=== PATIENT | male | born 1950 | race Caucasian/White ===

== ENCOUNTER → 2018-08-11 12:57 | Outpatient (CLI) | payer OTHER, SELFPAY ==
[2018-08-11 13:52] LABS: Hemoglobin A1C% w Est Avg Glu 7.5 % (4.0-6.0)
== END ==
PROVIDERS: Family Provider Family Medicine; PCP Family Medicine; Visit Provider Hospitalist
DX: E11.65 Type 2 diabetes mellitus with hyperglycemia (principal)
CPT/HCPCS: 36415; 83036

== ENCOUNTER → 2018-08-17 13:36 | Outpatient (CLI) | payer OTHER, MEDICARE, SELFPAY ==
--- NOTE | 2018-08-17 14:48 | P.PCN_ITS ---
Cardiac Stress Test Report Referral & Results Date Patient Seen: 08/17/18 Requesting provider: Juanita Sandoval Indication: Chest pain Rest ECG: Unremarkable Procedure Note: Today following both written and verbal informed consent the patient was exercised according to a standard Jorge protocol patient went for a total of 6 minutes 10 seconds achieving a maximum heart rate of 127 maximum systolic blood pressure of 200. This is approximately 7.0 METS. Exercise was terminated at this point because of fatigue. Patient was also given Cardiolite through a previously started Hep-Lock IV by the transportation engineering technician approximately 1 minute prior to the cessation of exercise. No ST-T segment changes Normal heart rate blood pressure response Functional week impairment rated 15% sedentary scale Impression: No ECG evidence of ischemia Average exercise capacity to slightly diminished Please see perfusion imaging report as well Please note: Actual ECG tracings can be found in the PACS system.
--- NOTE | 2018-08-18 17:55 | DI.NM.S_ITS ---
DATE OF SERVICE: 08/17/2017 PROCEDURE PERFORMED: Exercise treadmill stress and rest myocardial perfusion imaging study with gating to assess ejection fraction and regional wall motion. ORDERING PROVIDER: Juanita Sandoval DO INDICATIONS: The patient is a 67-year-old diabetic male recently evaluated in the emergency department with left arm pain and severe hypertension. EXERCISE TREADMILL TESTING: The patient was able to exercise for a total of 6 minutes 10 seconds on a standard Jorge protocol suggesting moderately impaired exercise capacity with an LASHAWN of +25%. He had a mildly blunted heart rate response, achieving a maximum heart rate of 127 bpm (82% of his predicted maximum) and a mild hypertensive blood pressure response with a resting blood pressure of 160/88 increasing to a peak of 200/90. He had no chest discomfort and his resting ECG shows sinus rhythm and is normal, and there are no significant ST-segment shifts to suggest ischemia. There were no arrhythmias. At 5 minutes 17 seconds of exercise, at heart rate of 126 bpm, 24.7 mCi of technetium-99 Myoview was injected and the patient was imaged 15 minutes later using a gated SPECT acquisition protocol. He returned the following day and was reinjected with an additional 27.4 mCi of technetium-99 Myoview and was imaged 30 minutes later, again using a gated SPECT acquisition protocol. FINDINGS: 1. Raw Data: There is fair myocardial tracer uptake with some attenuation clearly evident. There is also a mild amount of motion which can also introduce artifact The lung/heart ratio is normal at 0.36 with a normal TID ratio of 0.73. 2. Quantitative Gated SPECT: Post stress ejection fraction is estimated at 71% without any regional wall motion abnormality and specifically, the proximal inferolateral wall and apex have normal contractility. The resting ejection fraction is estimated at 69% with a normal resting end-diastolic volume of 110 mL. 3. Myocardial Perfusion Imaging: Post stress supine images show a fairly normal perfusion pattern with mildly decreased tracer activity at the base of the inferior wall with a more severe defect at the base of the inferolateral wall but this essentially resolves on prone imaging suggesting this most likely reflects attenuation artifact. In addition, there is a very small subtle defect at the apex which again, resolves on prone imaging. The resting images show a similar perfusion pattern. While there is very slight improvement at the base of the inferolateral wall, this again is most likely secondary to attenuation artifact. The apical defect appears unchanged. CONCLUSIONS: 1. Probable normal myocardial perfusion study with slightly reduced sensitivity because of a mildly blunted heart rate response to exercise. 2. Small, predominantly fixed, slightly reversible perfusion defect at the base of the inferolateral wall that resolves on prone imaging, most likely reflective of diaphragmatic attenuation artifact. There is also a small fixed defect at the apex which most likely reflects chest wall attenuation. There is no compelling evidence for significant myocardial ischemia. 3. Normal left ventricular systolic function without focal wall motion abnormalities. 4. Moderately impaired exercise capacity without angina or ECG evidence of ischemia. There is a slightly blunted heart rate response to exercise and a mild hypertensive blood pressure response to exercise. Yannick Tran - RINA/grant/ab doc#: [id number]/job#: [id number] dd: 08/18/2018 16:58:00 dt: 08/18/2018 17:42:00 DICTATING MD/COPIES TO: Jesus Schmitt MD; Juanita Sandoval DO COPIES MNE: RADHA HALLMAN
== END ==
PROVIDERS: PCP Family Medicine; Visit Provider Family Medicine
DX: R07.9 Chest pain, unspecified (principal); M79.602 Pain in left arm; I10 Essential (primary) hypertension; E11.9 Type 2 diabetes mellitus without complications
CPT/HCPCS: 78452; 93016; 93017; 93018; A9502

== ENCOUNTER → 2020-04-27 14:57 | Outpatient (CLI) | payer OTHER, MEDICARE, SELFPAY ==
[2020-04-27 15:23] LABS: Add Manual Diff / Slide Review NO; Basophils Absolute Auto 0 /uL (0-100); Basophils Percent Auto 0.9 % (0-2); Eosinophils Absolute Auto 100 /uL (0-450); Hematocrit 43.4 % (41-53); Hemoglobin 14.9 g/dL (13.5-17.5); Lymphocytes Absolute Auto 600 /uL (1100-4500); Lymphocytes Percent Auto 14.3 % (25-40); Mean Corpuscular HGB Conc 34.4 % (30-36); Mean Corpuscular Hemoglobin 29.7 PG (26-34); Mean Corpuscular Volume 86.4 fL (80-100); Monocytes Absolute Auto 300 /uL (0-900); Monocytes Percent Auto 6.6 % (3-14); Neutrophils Absolute Auto 3300 /uL (1500-7000); Neutrophils Percent Auto 76.2 % (50-75); Platelet Count 87 X10^3/uL (150-400); Red Blood Cell Count 5.02 X10^6/uL (4.5-5.9); Red Cell Distribution Width 13.2 % (11.6-14.8); White Blood Cell Count 4.4 X10^3/uL (4.5-11.0)
[2020-04-27 15:53] LABS: Hemoglobin A1C% w Est Avg Glu 7.2 % (4.0-6.0)
[2020-04-27 15:55] LABS: Alanine Aminotransferase 23 IU/L (<50); Albumin 4.2 g/dL (3.5-5.0); Albumin Globulin Ratio 1.3 (1.0-2.8); Alkaline Phosphatase 69 U/L (38-126); Aspartate Aminotransferase 25 IU/L (17-59); BUN Creatinine Ratio 26.5 (6-22); Bilirubin Total 0.6 mg/dL (0.2-1.3); Blood Urea Nitrogen 31 mg/dL (9-20); Calcium 9.5 mg/dL (8.4-10.2); Carbon Dioxide 30 mmol/L (22-32); Chloride 101 mmol/L (98-107); Estimated Glomerular Filt Rate > 60.0 mL/min (>60); Globulin 3.3 g/dL (1.7-4.1); Glucose 211 mg/dL (80-110); HEMOLYSIS < 15 (0-50); Potassium 4.4 mmol/L (3.4-5.1); Sodium 136 mmol/L (137-145); Total Protein 7.5 g/dL (6.3-8.2)
== END ==
PROVIDERS: PCP Family Medicine; Referring Provider Family Medicine; Visit Provider Family Medicine
DX: D69.6 Thrombocytopenia, unspecified (principal); E11.65 Type 2 diabetes mellitus with hyperglycemia; E66.9 Obesity, unspecified; I10 Essential (primary) hypertension; N30.11 Interstitial cystitis (chronic) with hematuria
CPT/HCPCS: 36415; 80053; 83036; 85025

== ENCOUNTER → 2022-03-29 12:08 | Outpatient (CLI) | payer OTHER, MEDICARE, SELFPAY ==
[2022-03-29 13:38] LABS: Add Manual Diff / Slide Review NO; Basophils Absolute Auto 100 /uL (0-100); Basophils Percent Auto 1.4 % (0-2); Eosinophils Absolute Auto 400 /uL (0-450); Eosinophils Percent Auto 5.6 % (2-4); Hematocrit 40.5 % (41-53); Hemoglobin 13.9 g/dL (13.5-17.5); Lymphocytes Absolute Auto 900 /uL (1100-4500); Lymphocytes Percent Auto 11.1 % (25-40); Mean Corpuscular HGB Conc 34.4 % (30-36); Mean Corpuscular Hemoglobin 29.8 PG (26-34); Mean Corpuscular Volume 86.7 fL (80-100); Monocytes Absolute Auto 600 /uL (0-900); Monocytes Percent Auto 7.3 % (3-14); Neutrophils Absolute Auto 5800 /uL (1500-7000); Neutrophils Percent Auto 74.6 % (50-75); Platelet Count 121 X10^3/uL (150-400); Red Blood Cell Count 4.67 X10^6/uL (4.5-5.9); White Blood Cell Count 7.8 X10^3/uL (4.5-11.0)
[2022-03-29 13:48] LABS: Hemoglobin A1C% w Est Avg Glu 7.4 % (4.0-6.0)
[2022-03-29 13:57] LABS: Alanine Aminotransferase 26 IU/L (<50); Albumin 4.1 g/dL (3.5-5.0); Albumin Globulin Ratio 1.1 (1.0-2.8); Alkaline Phosphatase 87 U/L (38-126); Aspartate Aminotransferase 25 IU/L (17-59); BUN Creatinine Ratio 25.7 (6-22); Bilirubin Total 0.5 mg/dL (0.2-1.3); Blood Urea Nitrogen 43 mg/dL (9-20); Carbon Dioxide 22 mmol/L (22-32); Chloride 105 mmol/L (98-107); Cholesterol 181 mg/dL (140-199); Estimated Glomerular Filt Rate 44 mL/min (>60); Globulin 3.8 g/dL (1.7-4.1); Glucose 222 mg/dL (80-110); HDL Cholesterol 48 mg/dL (40-60); HEMOLYSIS < 15 (0-50); LDL Cholesterol Calculated 109 mg/dL (<100); Potassium 4.8 mmol/L (3.4-5.1); Sodium 138 mmol/L (137-145); Total Protein 7.9 g/dL (6.3-8.2); Triglycerides 120 mg/dL (35-150); Uric Acid 6.1 mg/dL (3.5-8.5)
[2022-03-29 14:27] LABS: TSH w/ Reflex to FT4 3.51 uIU/mL (0.47-4.68)
[2022-04-04 10:36] LABS: Percent Free Testosterone 1.51 % (1.50-4.20); Testosterone Free 5.16 ng/dL (5.00-21.00); Testosterone Total 341.4 ng/dL (264.0-916.0)
== END ==
PROVIDERS: PCP Family Medicine; Referring Provider Family Medicine; Visit Provider Family Medicine
DX: E11.65 Type 2 diabetes mellitus with hyperglycemia (principal); I10 Essential (primary) hypertension; N30.11 Interstitial cystitis (chronic) with hematuria
CPT/HCPCS: 36415; 80053; 80061; 83036; 84402; 84403; 84443; 84550; 85025

== ENCOUNTER → 2022-05-27 14:47 | Outpatient (CLI) | payer OTHER, MEDICARE, SELFPAY ==
--- NOTE | 2022-05-27 14:50 | DI.RAD.S_ITS ---
PROCEDURE: XR CHEST 2V INDICATIONS: Eval and Treat TECHNIQUE: 2 views of the chest were acquired. COMPARISON: [facility], , CHEST 2 VIEW, 01/05/2014, 13:45. FINDINGS: Surgical changes and devices: None. Lungs and pleura: Similar scarring in the right upper lung zone. Mediastinum: Mediastinal contours are normal. Heart size is normal. Bones and chest wall: No suspicious bony abnormalities. Soft tissues appear unremarkable. IMPRESSION: Similar scarring in the right upper lung zone. Dictated by: Tobin Del Real M.D. on 05/27/2022 at 15:54 Approved by: Tobin Del Real M.D. on 05/27/2022 at 16:02
[2022-05-27 16:56] LABS: Creatinine Urine Random 133.7 mg/dL
[2022-05-28 05:27] LABS: Labcorp Hemoglobin (Hb) A1c 6.4 % (4.8-5.6)
[2022-05-28 05:32] LABS: Alanine Aminotransferase 21 IU/L (<50); Albumin 3.7 g/dL (3.5-5.0); Albumin Globulin Ratio 1.1 (1.0-2.8); Alkaline Phosphatase 88 U/L (38-126); Aspartate Aminotransferase 24 IU/L (17-59); BUN Creatinine Ratio 23.8 (6-22); Bilirubin Total 0.4 mg/dL (0.2-1.3); Blood Urea Nitrogen 41 mg/dL (9-20); Carbon Dioxide 24 mmol/L (22-32); Chloride 105 mmol/L (98-107); Estimated Glomerular Filt Rate 42 mL/min (>60); Globulin 3.3 g/dL (1.7-4.1); Glucose 154 mg/dL (80-110); HEMOLYSIS < 15 (0-50); Potassium 4.8 mmol/L (3.4-5.1); Sodium 137 mmol/L (137-145)
[2022-05-28 06:02] LABS: Prostate Specific Antigen Scrn 3.02 ng/mL (0.1-4.0)
== END ==
PROVIDERS: PCP Family Medicine; Referring Provider Family Medicine; Visit Provider Family Medicine
DX: D86.9 Sarcoidosis, unspecified (principal); E11.65 Type 2 diabetes mellitus with hyperglycemia; I10 Essential (primary) hypertension; Z12.5 Encounter for screening for malignant neoplasm of prostate
CPT/HCPCS: 36415; 71046; 80053; 82043; 82570; 83036; G0103

== ENCOUNTER → 2022-11-05 17:31 | Outpatient (CLI) | payer OTHER, MEDICARE, SELFPAY ==
[2022-11-05 18:07] LABS: Alanine Aminotransferase 21 IU/L (<50); Albumin 3.6 g/dL (3.5-5.0); Albumin Globulin Ratio 1.1 (1.0-2.8); Alkaline Phosphatase 69 U/L (38-126); Aspartate Aminotransferase 26 IU/L (17-59); BUN Creatinine Ratio 19.3 (6-22); Bilirubin Total 0.7 mg/dL (0.2-1.3); Blood Urea Nitrogen 32 mg/dL (9-20); Calcium 8.7 mg/dL (8.4-10.2); Carbon Dioxide 24 mmol/L (22-32); Chloride 106 mmol/L (98-107); Cholesterol 160 mg/dL (140-199); Estimated Glomerular Filt Rate 44 mL/min (>60); Globulin 3.4 g/dL (1.7-4.1); Glucose 105 mg/dL (80-110); HDL Cholesterol 46 mg/dL (40-60); HEMOLYSIS < 15 (0-50); LDL Cholesterol Calculated 93 mg/dL (<100); Potassium 4.4 mmol/L (3.4-5.1); Sodium 136 mmol/L (137-145); Triglycerides 105 mg/dL (35-150)
[2022-11-05 18:16] LABS: Creatinine Urine Random 129.8 mg/dL
[2022-11-05 20:00] LABS: Microalbumi Creatinin Ratio Ur 11325.1 ug/mg CR (<30)
== END ==
PROVIDERS: PCP Family Medicine; Referring Provider Family Medicine; Visit Provider Family Medicine
DX: E11.65 Type 2 diabetes mellitus with hyperglycemia (principal); I10 Essential (primary) hypertension; N40.0 Benign prostatic hyperplasia without lower urinary tract symptoms; N18.31 Chronic kidney disease, stage 3a
CPT/HCPCS: 36415; 80053; 80061; 82043; 82570; 83036

== ENCOUNTER → 2022-12-05 11:23 | Outpatient (CLI) | payer OTHER, MEDICARE, SELFPAY ==
--- NOTE | 2022-12-05 11:27 | DI.RAD.S_ITS ---
PROCEDURE: XR HUMERUS LT 2V INDICATIONS: Shoulder pain TECHNIQUE: 2 views of the humerus were acquired. COMPARISON: [facility], CR, XR SHOULDER LT MIN 2V, 12/05/2022, 11:32. [facility], CR, XR SCAPULA LT, 12/05/2022, 11:32. FINDINGS: Bones: No fractures or dislocations. No suspicious bony lesions. Soft tissues: No suspicious soft tissue calcifications. IMPRESSION: No acute osseous abnormality. Dictated by: Yoan Waters M.D. on 12/05/2022 at 16:27 Approved by: Yoan Waters M.D. on 12/05/2022 at 16:29
--- NOTE | 2022-12-05 11:27 | DI.RAD.S_ITS ---
PROCEDURE: XR SCAPULA LT INDICATIONS: Shoulder pain TECHNIQUE: 2 views of the scapula were acquired. COMPARISON: None. FINDINGS: Bones: No acute fractures or dislocations. No suspicious bony lesions. Visualized ribs appear intact. Mild to moderate degenerative changes at the acromioclavicular joint. Soft tissues: Overlying soft tissues appear normal. IMPRESSION: No acute osseous abnormality. If clinical suspicion and/or symptoms persist, additional imaging with repeat plain films, or advanced imaging (e.g. CT, MRI) may be helpful for further assessment. Approved by: Ari Helms M.D. on 12/05/2022 at 20:43
--- NOTE | 2022-12-05 11:27 | DI.RAD.S_ITS ---
PROCEDURE: XR SHOULDER LT MIN 2V INDICATIONS: Shoulder pain TECHNIQUE: 3 views of the shoulder were acquired. COMPARISON: [facility], DEBORAH, XR HUMERUS LT 2V, 12/05/2022, 11:32. [facility], DEBORAH, XR SCAPULA LT, 12/05/2022, 11:32. FINDINGS: Bones: No fractures or dislocations. Moderate degenerative change at the AC joint. No suspicious bony lesions. Visualized ribs appear intact. Soft tissues: No suspicious soft tissue calcifications. IMPRESSION: Moderate degenerative changes at the AC joint. Dictated by: Yoan Waters M.D. on 12/05/2022 at 16:29 Approved by: Yoan Waters M.D. on 12/05/2022 at 16:30
== END ==
PROVIDERS: PCP Family Medicine; Referring Provider Nurse Practitioner Family; Visit Provider Nurse Practitioner Family
DX: M25.512 Pain in left shoulder (principal)
CPT/HCPCS: 73010; 73030; 73060

== ENCOUNTER → 2023-05-16 13:03 | Outpatient (CLI) | payer OTHER, SELFPAY ==
[2023-05-16 15:08] LABS: Alanine Aminotransferase 18 IU/L (<50); Albumin 3.4 g/dL (3.5-5.0); Albumin Globulin Ratio 1.1 (1.0-2.8); Alkaline Phosphatase 77 U/L (38-126); Aspartate Aminotransferase 23 IU/L (17-59); BUN Creatinine Ratio 21.1 (6-22); Bilirubin Total 0.6 mg/dL (0.2-1.3); Blood Urea Nitrogen 42 mg/dL (9-20); Calcium 8.7 mg/dL (8.4-10.2); Carbon Dioxide 21 mmol/L (22-32); Chloride 111 mmol/L (98-107); Estimated Glomerular Filt Rate 35 mL/min (>60); Globulin 3.2 g/dL (1.7-4.1); Glucose 112 mg/dL (80-110); HEMOLYSIS < 15 (0-50); Potassium 4.5 mmol/L (3.4-5.1); Sodium 139 mmol/L (137-145); Total Protein 6.6 g/dL (6.3-8.2)
[2023-05-16 15:11] LABS: Hemoglobin A1C% w Est Avg Glu 5.9 % (4.0-6.0)
[2023-05-16 15:32] LABS: Prostate Specific Antigen Scrn 1.28 ng/mL (0.1-4.0)
== END ==
LOC: LAB 13:04
PROVIDERS: PCP Family Medicine; Referring Provider Family Medicine; Visit Provider Family Medicine
DX: N40.0 Benign prostatic hyperplasia without lower urinary tract symptoms (principal); I10 Essential (primary) hypertension; E11.65 Type 2 diabetes mellitus with hyperglycemia; Z12.5 Encounter for screening for malignant neoplasm of prostate
CPT/HCPCS: 36415; 80053; 83036; G0103

== ENCOUNTER 2023-10-02 17:50 | Emergency (ER) | payer OTHER, SELFPAY ==
[2023-10-02] VITALS (10 sets, daily range): BP systolic 151–191; BP diastolic 71–81; PULSE 77–96; RESP 26–30; TEMP 36.8–37.7; O2SAT 96–99; BMI 31.8
--- NOTE | 2023-10-02 18:05 | DI.RAD.S_ITS ---
PROCEDURE: XR CHEST 1V INDICATIONS: Shortness of breath TECHNIQUE: One view of the chest was acquired. COMPARISON: [facility], , XR CHEST 2V, 05/27/2022, 14:48. [facility], , CHEST 2 VIEW, 01/05/2014, 13:45. FINDINGS: Surgical changes and devices: None. Lungs and pleura: No dense consolidation or pleural effusion. Low lung volumes. Similar possible right mid and upper lung scarring Mediastinum: Heart size is normal and unchanged Bones and chest wall: No suspicious bony lesions. Overlying soft tissues appear unremarkable. IMPRESSION: No acute cardiopulmonary abnormality is seen on this limited single view study with low lung volumes. Dictated by: Juan Ryan M.D. on 10/02/2023 at 18:29 Approved by: Juan Ryan M.D. on 10/02/2023 at 18:30
--- NOTE | 2023-10-02 18:24 | EKG_ITS ---
[facility] [address] [place] [address] Test Date: 2023-10-02 Pat Name: Yannick Tran Department: [facility] Room: Gender: Male Tattooer: KAIT : 1950 Requested By: Order Number: [id number] Reading MD: Vasu Schreiber Measurements Intervals [place] Rate: 90 P: 54 NH: 178 QRS: -42 QRSD: 136 T: 20 QT: 362 QTc: 442 Interpretive Statements Normal sinus rhythm Left axis deviation Right bundle branch block Minimal voltage criteria for LVH, may be normal variant ( R in aVL ) Electronically Signed On 10-04-2023 18:28:11 PDT by Vasu Schreiber
[2023-10-02 18:36] LABS: Add Manual Diff / Slide Review NO; Basophils Absolute Auto 0 /uL (0-100); Basophils Percent Auto 0.7 % (0-2); Eosinophils Absolute Auto 100 /uL (0-450); Eosinophils Percent Auto 1.9 % (2-4); Hematocrit 31.2 % (41-53); Hemoglobin 10.9 g/dL (13.5-17.5); INR 1.2 (0.9-1.3); Lymphocytes Absolute Auto 100 /uL (1100-4500); Lymphocytes Percent Auto 4.9 % (25-40); Mean Corpuscular HGB Conc 34.8 % (30-36); Mean Corpuscular Hemoglobin 31.2 PG (26-34); Mean Corpuscular Volume 89.5 fL (80-100); Monocytes Absolute Auto 600 /uL (0-900); Monocytes Percent Auto 20.3 % (3-14); Neutrophils Absolute Auto 2000 /uL (1500-7000); Neutrophils Percent Auto 72.2 % (50-75); Platelet Count 81 X10^3/uL (150-400); Prothrombin Time 13.5 SECONDS (9.4-12.5); Red Blood Cell Count 3.48 X10^6/uL (4.5-5.9); Red Cell Distribution Width 12.6 % (11.6-14.8); White Blood Cell Count 2.8 X10^3/uL (4.5-11.0)
[2023-10-02 18:39] LABS: Lactate (Lactic Acid) 0.9 mmol/L (0.7-2.1)
[2023-10-02 18:40] LABS: Alanine Aminotransferase 22 IU/L (<50); Albumin 3.4 g/dL (3.5-5.0); Alkaline Phosphatase 78 U/L (38-126); Aspartate Aminotransferase 25 IU/L (17-59); BUN Creatinine Ratio 15.6 (6-22); Bilirubin Total 0.6 mg/dL (0.2-1.3); Blood Urea Nitrogen 40 mg/dL (9-20); Calcium 8.3 mg/dL (8.4-10.2); Carbon Dioxide 19 mmol/L (22-32); Chloride 109 mmol/L (98-107); Estimated Glomerular Filt Rate 26 mL/min (>60); Globulin 3.3 g/dL (1.7-4.1); Glucose 118 mg/dL (80-110); HEMOLYSIS < 15 (0-50); Potassium 4.7 mmol/L (3.4-5.1); Sodium 134 mmol/L (137-145); Total Protein 6.7 g/dL (6.3-8.2)
[2023-10-02 18:51] LABS: NT-proBNP (BNP-Adult 18+) 4260 pg/mL (<125); Troponin I 0.039 ng/mL (0.01-0.034)
[2023-10-02] MEDS: ACETAMINOPHEN 325 MG TABLET 975 MG PO (19:50)
--- NOTE | 2023-10-02 20:04 | ED.GENADULT ---
HPI - General Adult General Chief complaint: Shortness of Breath/Dyspnea Stated complaint: sent by wic/covid+/heart issues/SOB Time Seen by Provider: 10/02/23 18:55 History of Present Illness HPI narrative: 72-year-old male with history of stage IV CKD, CAD, T2DM, HTN presents by private vehicle from home for evaluation. Patient states that he and his have both felt on the whether this last week. He states that he tested positive for COVID-19. Due to his history of kidney disease he called his primary care doctor's office, and he states that the staff member he spoke to told him to go to the walk-in clinic for a general evaluation. Patient went to the walk-in clinic, but was referred to the ER for evaluation. Patient reports very mild shortness of breath that he attributes to nasal congestion. He states right now his current complaint is heartburn that he has had difficulty controlling. He states that due to his ESRD he can't take his usual heartburn medicines. Related Data Previous Rx's Medication Instructions Recorded Disabled Parking Permit ea ##1 07/31/16 flash glucose sensor (FreeStyle #1 ea 07/21/18 Zofia 10 Day Sensor kit) empagliflozin 25 mg tablet 25 mg PO DAILY #90 tabs 05/27/22 (Jardiance) metformin 500 mg tablet 500 mg PO DAILY #90 tabs 11/20/22 amlodipine 5 mg tablet 5 mg PO BID #180 tabs 05/15/23 lisinopril 20 mg tablet 20 mg PO BID #180 tabs 05/15/23 tamsulosin 0.4 mg capsule (Flomax) 0.4 mg PO BID #180 caps 06/18/23 oxycodone 5 mg tablet 2.5 mg (1/2 x 5 mg) PO BID PRN 09/20/23 pain #15 tabs Allergies Allergy/AdvReac Type Severity Reaction Status Date / Time Sulfa (Sulfonamide Allergy Severe convulsions Verified 09/12/23 14:41 Antibiotics) [SULFA (SULFONAMIDE ANTIBIOTICS)] penicillin G [PENICILLIN G] Allergy Mild HIVES Verified 09/12/23 14:41 phenazopyridine Allergy Mild RASH Verified 09/12/23 14:41 [PHENAZOPYRIDINE] pseudoephedrine AdvReac Severe urinary Verified 09/12/23 14:41 [PSEUDOEPHEDRINE] retention erythromycin base AdvReac Mild VOMITING Verified 09/12/23 14:41 [ERYTHROMYCIN BASE] Patient History Medical History (Updated 10/02/23 @ 21:33 by Shanon Smith MD) Dupuytren contracture of right hand Sleep apnea Adhesive capsulitis Left shoulder strain Chronic kidney disease Plaque psoriasis Well adult exam BPH (benign prostatic hyperplasia) Other chronic pain (09/20/16) Thrombocytopenia (12/20/13) Uncontrolled type 2 diabetes mellitus (12/20/13) Chronic interstitial cystitis with hematuria Essential hypertension Class 1 obesity Sarcoidosis Family History Brother CAD (coronary artery disease) H/O heart bypass surgery Social History Smoking Status: Never smoker Smoking Status: Never smoker Substance Use Type: does not use Exam Initial Vital Signs Initial Vital Signs: Vital Signs Temperature 99.8 F H 10/02/23 17:59 Pulse Rate 96 H 10/02/23 17:59 Respiratory Rate 28 H 10/02/23 17:59 Blood Pressure 191/81 H 10/02/23 17:59 Pulse Oximetry 98 10/02/23 17:59 Oxygen Delivery Method Room Air 10/02/23 17:59 Const: Awake, alert, appears chronically unwell Cardiac: regular rate, regular rhythm RESP: unlabored, clear bilaterally, no wheezing MSK: no edema, full range of motion, pulses equal Skin: Warm, Dry, intact, no rashes Neuro: AO x3, CN II-XII grossly intact, moves all extremities Course Orders Ordered: Discontinued Medications Acetaminophen (Acetaminophen 325 Mg Tablet) 975 mg PO NOW ONE Stop: 10/02/23 19:41 Last Admin: 10/02/23 19:50 Dose: 975 mg Documented By: FARIHA Al Hydrox/Mg Hydrox/Simethicone (Mag Hydrox/Alum/Simeth 30 Ml Udc) 30 ml PO NOW ONE Stop: 10/02/23 19:52 Last Admin: 10/02/23 19:59 Dose: Not Given Documented By: FARIHA Lidocaine HCl (Lidocaine Viscous 2% 15 Ml Solution) 15 ml PO NOW ONE Stop: 10/02/23 19:52 Last Admin: 10/02/23 20:05 Dose: 15 ml Documented By: FARIHA Simethicone (Simethicone 80 Mg Tablet) 80 mg PO NOW ONE Stop: 10/02/23 19:54 Last Admin: 10/02/23 20:05 Dose: 80 mg Documented By: FARIHA Vital Signs Vital signs: Vital Signs - 8 hr 10/02/23 17:59 10/02/23 18:53 10/02/23 18:53 Temperature 99.8 F H Pulse Rate 96 H 86 Respiratory Rate 28 H Blood Pressure 191/81 H 151/72 H Pulse Oximetry 98 98 Oxygen Delivery Method Room Air 10/02/23 19:00 10/02/23 19:00 10/02/23 19:30 Temperature Pulse Rate 85 86 Respiratory Rate 28 H Blood Pressure 157/75 H Pulse Oximetry 97 98 Oxygen Delivery Method Room Air 10/02/23 19:31 10/02/23 19:31 10/02/23 19:50 Temperature 99.3 F 99.3 F Pulse Rate 86 Respiratory Rate 30 H Blood Pressure 155/72 H Pulse Oximetry 98 Oxygen Delivery Method Room Air 10/02/23 20:00 10/02/23 20:00 Temperature Pulse Rate 83 Respiratory Rate 27 H Blood Pressure 166/76 H Pulse Oximetry 99 Oxygen Delivery Method Room Air Medical Decision Making Lab Data 10/02/23 18:20 10/02/23 18:20 Labs: Lab Results 10/02/23 10/02/23 Range/Units 18:20 20:20 WBC 2.8 L (4.5-11.0) X10^3/uL RBC 3.48 L (4.5-5.9) X10^6/uL Hgb 10.9 L (13.5-17.5) g/dL Hct 31.2 L (41-53) % MCV 89.5 (80-100) fL MCH 31.2 (26-34) PG MCHC 34.8 (30-36) % RDW 12.6 (11.6-14.8) % Plt Count 81 L (150-400) X10^3/uL Neut % (Auto) 72.2 (50-75) % Lymph % (Auto) 4.9 L (25-40) % Placer % (Auto) 20.3 H (3-14) % Eos % (Auto) 1.9 L (2-4) % Baso % (Auto) 0.7 (0-2) % Neut # (Auto) 2000 (5827-3690) /uL Lymph # (Auto) 100 L (3870-1069) /uL Placer # (Auto) 600 (0-900) /uL Eos # (Auto) 100 (0-450) /uL Baso # (Auto) 0 (0-100) /uL PT 13.5 H (9.4-12.5) SECONDS INR 1.2 (0.9-1.3) Sodium 134 L (137-145) mmol/L Potassium 4.7 (3.4-5.1) mmol/L Chloride 109 H (98-107) mmol/L Carbon Dioxide 19 L (22-32) mmol/L BUN 40 H (9-20) mg/dL Creatinine 2.57 H (0.66-1.25) mg/dL Estimated GFR 26 L (>60) mL/min BUN/Creatinine Ratio 15.6 (6-22) Glucose 118 H (80-110) mg/dL Lactate 0.9 (0.7-2.1) mmol/L Calcium 8.3 L (8.4-10.2) mg/dL Total Bilirubin 0.6 (0.2-1.3) mg/dL AST 25 (17-59) IU/L ALT 22 (<50) IU/L Alkaline Phosphatase 78 (38-126) U/L Troponin I 0.039 H 0.052 H (0.01-0.034) ng/mL NT-Pro-B Natriuret Pep 4260 H (<125) pg/mL Total Protein 6.7 (6.3-8.2) g/dL Albumin 3.4 L (3.5-5.0) g/dL Globulin 3.3 (1.7-4.1) g/dL Albumin/Globulin Ratio 1.0 (1.0-2.8) Imaging Data Chest x-ray: Radiologist's Impression: PROCEDURE: XR CHEST 1V INDICATIONS: Shortness of breath TECHNIQUE: One view of the chest was acquired. COMPARISON: [facility], XR CHEST 2V, 05/27/2022, 14:48. [facility], CHEST 2 VIEW, 01/05/2014, 13:45. FINDINGS: Surgical changes and devices: None. Lungs and pleura: No dense consolidation or pleural effusion. Low lung volumes. Similar possible right mid and upper lung scarring Mediastinum: Heart size is normal and unchanged Bones and chest wall: No suspicious bony lesions. Overlying soft tissues appear unremarkable. IMPRESSION: No acute cardiopulmonary abnormality is seen on this limited single view study with low lung volumes. Dictated by: Juan Ryan M.D. on 10/02/2023 at 18:29 Approved by: Juan Ryan M.D. on 10/02/2023 at 18:30 ECG Data Interpretation: Normal sinus rhythm at 83 beats per minute. Normal UT, right bundle-branch block, QTC 451 MDM Narrative Medical decision making narrative: Patient tested positive for COVID-19. Referred for general evaluation by his medical clinic. Patient states right now that his primary concern is heartburn, he states that with his CKD he was not been able to take his usual heartburn medication and is requesting something for relief. Laboratory work is reviewed, significant for sodium 134, potassium 4.7, creatinine 2.57 (upp from 1.99 05/16/23), GFR 23 (from 35 05/16/23). Creatinine and GFR consistent with the patient's reported history of stage 4 kidney disease. Family does not know his baseline creatinine. Troponin 0.039, repeat 0.052, BNP 4260. EKG sinus rhythm, right bundle-branch block seen. No priors for comparison. Patient's heartburn completely resolved with viscous lidocaine. Patient's case discussed with on-call Cardiology Dr. Camara, who reviewed EKG from today and compared to EKG from 2019, she states that they are virtually unchanged. Troponin likely secondary to clearance from ESRD. Patient and family members counseled on all lab and imaging findings, recommended supportive care measures at home while feeling poorly from COVID-19. Close PCP follow up advised. ED return precautions discussed at bedside. Discharge Plan Departure Patient Disposition: Home Clinical Impression: COVID-19 Instructions: Heartburn -- Overview, COVID-19 Activity Restrictions/Additional Instructions: Your laboratory work today showed the have chronic kidney disease, which is known to you. You may occasionally use Tums for heartburn, avoid products that contain magnesium. Prescriptions: No Action Disabled Parking Permit Qty: 1 0RF amlodipine 5 mg tablet 5 mg PO BID Qty: 180 3RF Hold Instructions: try chged dose lisinopril 20 mg tablet 20 mg PO BID Qty: 180 3RF oxycodone 5 mg tablet 2.5 mg PO BID PRN (Reason: pain) Qty: 15 0RF (DME) FreeStyle Zofia 10 Day Sensor kit See Dose Instructions .ROUTE .MEDSUPPLY Qty: 1 0RF Dose Instruction: As directed Rx Instructions: As directed Jardiance 25 mg tablet 25 mg PO DAILY Qty: 90 3RF Rx Instructions: Take 1/2 tablet for 6 days. After 6 days take 1 tablet. metformin 500 mg tablet 500 mg PO DAILY Qty: 90 3RF tamsulosin [Flomax] 0.4 mg capsule 0.4 mg PO BID Qty: 180 3RF Referrals: Kyle Vasquez, [Primary Care Provider] - Stand Alone Forms: Patient Portal/API
[2023-10-02] MEDS: LIDOCAINE VISCOUS 2% 15 ML SOLUTION PO (20:05)
[2023-10-02] MEDS: SIMETHICONE 80 MG TABLET PO (20:05)
[2023-10-02 20:53] LABS: Troponin I 0.052 ng/mL (0.01-0.034)
--- NOTE | 2023-10-02 21:22 | EKG_ITS ---
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
== END 2023-10-02 21:47 | disposition home or self-care (01) ==
PROVIDERS: Emergency Provider Emergency Medicine; Family Provider Family Medicine; PCP Family Medicine
DX: U07.1 COVID-19 (principal); I45.10 Unspecified right bundle-branch block; R79.89 Other specified abnormal findings of blood chemistry; R06.02 Shortness of breath; Z79.899 Other long term (current) drug therapy
CPT/HCPCS: 36415; 71045; 80053; 83605; 83880; 84484; 85025; 85610; 93005; 99284

== ENCOUNTER 2023-11-14 14:30 | Outpatient (RCR) | payer OTHER, SELFPAY ==
--- NOTE | 2023-10-28 17:02 | PT.OIE ---
Current Diagnoses Palmar fascial fibromatosis [Dupuytren] (10/28/23) Past Medical History (Last Updated 09/12/23 @ 15:21 by Kyle Vasquez DO) Adhesive capsulitis BPH (benign prostatic hyperplasia) Chronic interstitial cystitis with hematuria Chronic kidney disease Class 1 obesity Dupuytren contracture of right hand Essential hypertension Left shoulder strain Other chronic pain (09/20/16) Plaque psoriasis Sarcoidosis Sleep apnea Thrombocytopenia (12/20/13) Uncontrolled type 2 diabetes mellitus (12/20/13) Well adult exam Visit Care Team Role Provider Type Kyle Vasquez DO Attending Provider Physician Family Provider Primary Care Provider Referring Provider Specialty: [facility] Practice Address: [address] [place] [address], [facility] Email: [email or web address] Physical Therapy Initial Evaluation PT-OP-A Visit Information Start: 10/21/23 18:27 Freq: Status: Active Protocol: Document 10/28/23 14:30 LRN (Rec: 10/28/23 16:54 LRN [id number]) Out-Patient Physical Therapy Visit Information Visit Information Visit Type Initial Evaluation Visit Start Time 14:38 Visit Stop Time 15:30 Visit Number 1 Evaluation Information Evaluation Date 10/28/23 Precautions Precautions PMH: Torn rotator cuff (byron) not repaired, diabetic, chronic kidney disease (2 days ago went to ER and was told did not yet need dialysis), neuropathy of L leg, interstitial cystitis. 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 Chemotherapy and accupuncture resulted in disappearance of hard lumps. Has a mass in lung. PT-OP-B Current Condition Start: 10/21/23 18:27 Freq: Status: Active Protocol: Document 10/28/23 14:30 LRN (Rec: 10/28/23 16:54 LRN [id number]) Current Condition History of Current Condition Onset Date 6 months ago. Current Complaints R ring and middle fingers lock up. History of Current Condition 6 months ago was removing baseboards and moulding around home (to put in new riaz) and one day was pulling baseboard the 2 R middle and ring finger 'locked up. Now the the ring finger locks up every day, so he forcefully opens it. The middle finger hasn't locked up in a month. Prior Treatments and Tests None. Treatment Goals Patient/Caregiver Goals Pt goal with therapy: Be able to straighten the R ring/middle finger on its own. Not have the R ring/middle finger lock up. HEP Personal Factors Other Personal Factors That May Effect Retired, and is always doing Therapy/Recovery something with your hands ( working on [employer]). Has a new puppy. Pt is R handed. Sarcoidosis, Diabetic history. PT-OP-C Subjective Start: 10/21/23 18:27 Freq: Status: Active Protocol: Document 10/28/23 14:30 LRN (Rec: 10/28/23 16:54 LRN [id number]) OP-PT Pain Assessment Pain Assessment Grid Paper Pain Assessment Grid Completed Yes Location R ring/middle fingers Pain Location Details DIP to to middle of palm Intensity 6 Scale Used Numeric (0 - 10) Description Burning,Throbbing Description- Other After he pops the finger straight pain is in the hand. Frequency Daily Pain Duration hour if not working. Other Pain Aggravating Factors flexing fingers. Pain Alleviating Factors Heat PT-OP-F Manual Assessment Start: 10/21/23 18:27 Freq: Status: Active Protocol: Document 10/28/23 14:30 LRN (Rec: 10/28/23 16:54 LRN [id number]) Manual Assessments Soft Tissue Assessment Soft Tissue Mobility Assessment Increased soft tissue density at R ring finger between PIP and MCP jt. Increased soft tissue tension, possible nodule between R ring/middle finger in distal 1 /2 of hand. Joint Mobility Assessment Joint Mobility Assessment R Ring finger: PIP jt: no mobility palmar, MCP excessive palmar mob, R middle finger: PIP jt excessive dorsal mob, MCP jt excessive dorsal mob. PT-OP-H Neuro Start: 10/21/23 18:27 Freq: Status: Active Protocol: Document 10/28/23 14:30 LRN (Rec: 10/28/23 16:54 LRN [id number]) Sensation Evaluation Gross Sensation Gross Sensation WNL PT-OP-J Posture/Palpation/Skin Start: 10/21/23 18:27 Freq: Status: Active Protocol: Document 10/28/23 14:30 LRN (Rec: 10/28/23 16:54 LRN [id number]) Posture Evaluation Position Sitting Head/C-Spine Posture Forward Head Shoulder Posture (R) Forward,(L) Elevated Arm Posture (L) Internally Rotated,(R) Internally Rotated PT-OP-K Range of Motion Start: 10/21/23 18:27 Freq: Status: Active Protocol: Document 10/28/23 14:30 LRN (Rec: 10/28/23 16:54 [facility] [id number]) Wrist Goniometric Range of Motion Wrist Right Flexion Active (degrees) 55 Extension Active (degrees) 45 Left Flexion Active (degrees) 55 Extension Active (degrees) 70 Finger Goniometric Range of Motion Finger Left Third Finger ROM WFL Yes MCP Flexion Active (degrees) 86 PIP Flexion Active (degrees) 80 DIP Flexion Active (70-90 degrees) 60 L Left Fourth MCP Flexion Active (degrees) 88 PIP Flexion Active (degrees) 90 DIP Flexion Active (70-90 degrees) 70 Right Third MCP Flexion Active (degrees) 70 PIP Flexion Active (degrees) 80 DIP Flexion Active (70-90 degrees) 56 L Right Fourth Finger ROM WFL No MCP Flexion Active (degrees) 76 PIP Flexion Active (degrees) 90 DIP Flexion Active (70-90 degrees) 50 L PT-OP-M Strength Start: 10/21/23 18:27 Freq: Status: Active Protocol: Document 10/28/23 14:30 LRN (Rec: 10/28/23 16:54 [facility] [id number]) Wrist Strength Wrist Manual Muscle Testing Right Wrist Pronation (degrees) 90 Wrist Supination (degrees) 60 Comments Strengh is WNL Left Wrist Pronation (degrees) 90 Wrist Supination (degrees) 70 Comments Strength is WNL Finger/Thumb Strength Finger Manual Muscle Testing Right Fifth Extension (thumb C8) 1 Trace Adduction 4 Good Abduction (fingers T1) 4 Good Comments Deferred MMT of flexion L hand: Digit 5 is normal strength. Right Fourth Extension (thumb C8) 2 Poor Adduction 4 Good Abduction (fingers T1) 4 Good Comments Deferred testing flexors due to locking history of finger. L hand: Digit 4 is normal strength. Right Third Extension (thumb C8) 2 Poor Adduction 4 Good Abduction (fingers T1) 4 Good Comments Deferred testing flexors due to locking history of finger. L hand: Digit 3 is normal strength. Hand Sewer Pipe Offbearer/Pinch Strength Hand Dominance Hand Dominance Right PT-OP-Q Treatments Start: 10/21/23 18:27 Freq: Status: Active Protocol: Document 10/28/23 14:30 LRN (Rec: 10/28/23 16:54 LRN [id number]) Manual Therapy Treatment Consent Patient gave verbal consent for manual Yes treatment Soft Tissue Mobilization R hand Body Location R hand: fingers 3 & 4 flexor tendons Mobilization Type Cross-Friction Intensity/Depth Moderate Body Position Sitting Comments Treatment performed 2 separate times through therapy. Self-Care/Home Management Treatment Education Other Education Discussed results of evaluation, goals, treatment, and plan of care (POC) with pt , attendance/cx/dns policy; pt agreeable to evaluation, goals, treatment, attendance/ cx/dns policy and POC. Activities Self-Care/Home Management Activities Pt instructed in self massage of fingers at MCP jts and to relax hand until release if felt vs forcing fingers open. PT-OP-T Assessment and Plan Start: 10/21/23 18:27 Freq: Status: Active Protocol: Document 10/28/23 14:30 LRN (Rec: 10/28/23 16:54 LRN [id number]) Physical Therapy Assessment Rehab Potential Rehabilitation Potential Fair Evaluation Complexity Number of Personal Factors/Comorbidities 3 or More Number of Body Systems Impaired 4 or More Clinical Presentation at Evaluation Evolving Impairments Impairments Pain,ROM,Soft Tissue Mobility, Strength Goals Three Impairment Pt not able to extend R hand digits 3, 4 with forcing straight. Short Term Goal (STG) Pt educated in use of modalities to reduce inflammation of R hand ( contrast bath, crotherapy). STG Duration 11/14/23 Intermediate Goal (LTG) Be able to extend the R ring/ middle finger and be able to open his hand on its own with self massage. LTG Duration 11/28/23 Two Impairment Locking of R ring/middle finger at MCP/PIP jts with gripping motion Short Term Goal (STG) Improve R hand finger extension strength to 2/5 ( primarily digits 3-5). STG Duration 11/14/23 Intermediate Goal (LTG) Pt will be able to minimize onset of R ring/middle finger locking up with a motion of flexion of fingers, by modifying activities and using relaxation procedures. LTG Duration 11/28/23 One Impairment Pt lacks appropriates self care HEP Railroad Surveyor Goal (LTG) Pt will be independent in R wrist (ext/sup), R finger ext strengthening, intrinsics ( palmar flex), finger tip bends. LTG Duration 11/28/23 Assessment Summary Assessment Pt is a 73 yo male who appears to have R hand 3rd digit and worse with 4th digit trigger fingers vs Dupuytren's contracture. He also demonstrates decreased R wrist /forearm mobility (extension/ supination), decreased 4th/3rd digits finger extension strength and inability to perform fist gripping ex due to locking up of the fingers after gripping. The pt has spent the last 6 months forcibly opening his R fingers when locking; therefore it's possible other damage may have occured, making it less likely for a full return to function. Pt would benefit from referral to a Certified Hand Specialist MATTI Elizondo, at [facility] for a custom fit volar splint to prevent fingers locking into flexion during daily activities and sleep for the right 4th & 3rd digit MCP/PIP joints and to improve his quality of sleep and functional referral specialist. The pt would then benefit from skilled physical therapy for heat or parafin dip, massage, finger stretches and manual of the finger joints. Physical Therapy Plan Frequency and Duration Frequency of Treatment 2x/Week Duration of treatment (weeks) 4 Plan of Care Start Date 10/28/23 Plan of Care End Date 11/28/23 Therapeutic Interventions Therapeutic Interventions Home Exercise Program,Joint Mobilizations,Manual Therapy, Self-Care/Home Management,Soft Tissue Mobilization, Therapeutic Exercises Modalities Cold Pack/Ice Massage,Hot Packs Other Referrals/Consults Referrals/Consults Recommended Recommend pt be referred to Certified Hand Specialist ( MATTI Elizondo, at [facility]) for a custom fit volar splint to prevent fingers locking into flexion during sleep for the right 4th and 3rd digit MCP/PIP joints to improve the pt's quality of sleep and functional referral specialist. [facility] may have a certified hand specialist. Next Visit Focus/Plan Next Note Type Treatment Note Next Visit Plan Next: HEP & possible DC. Refer pt to [facility] for splint to prevent finger flexion, might continue with PT for soft tissue treatments, ROM, modalities, and modifications to activities. Issue HEP: Wrist ROM ex's, finger extension & intrinsic strengthening, finger tip bends; information for R hand supports to limit flexion of R ring>middle finger, Tendon gliding ex's & teach self STM to release finger when locking up. Use of contrast bath to decrease inflammation. Educate to modify activity of opening/closing jars by using your left hand to open them and switching to your right to close them. Additionally, there are various jar police dispatcher devices available to reduce the stress on your hand during this task. To modify the way in which you open doors, ( lever-style doorknobs), kitchen or workshop tools with larger, rounded and/or or contoured handles.
--- NOTE | 2023-10-28 17:03 | PT.OPPOC ---
Physical, Occupational & Speech Therapy At [facility] Current Diagnoses Palmar fascial fibromatosis [Dupuytren] (10/28/23) Visit Care Team Role Provider Type Kyle Vasquez DO Attending Provider Physician Family Provider Primary Care Provider Referring Provider Specialty: Family Practice Address: [address] [place] [address], [facility] Email: [email or web address] Plan Of Care PT-OP-B Current Condition Start: 10/21/23 18:27 Freq: Status: Active Protocol: Document 10/28/23 14:30 LRN (Rec: 10/28/23 16:54 LRN [id number]) Current Condition History of Current Condition Onset Date 6 months ago. Current Complaints R ring and middle fingers lock up. History of Current Condition 6 months ago was removing baseboards and moulding around home (to put in new riaz) and one day was pulling baseboard the 2 R middle and ring finger 'locked up. Now the the ring finger locks up every day, so he forcefully opens it. The middle finger hasn't locked up in a month. Prior Treatments and Tests None. Treatment Goals Patient/Caregiver Goals Pt goal with therapy: Be able to straighten the R ring/middle finger on its own. Not have the R ring/middle finger lock up. HEP Personal Factors Other Personal Factors That May Effect Retired, and is always doing Therapy/Recovery something with your hands ( working on [employer]). Has a new puppy. Pt is R handed. Sarcoidosis, Diabetic history. PT-OP-T Assessment and Plan Start: 10/21/23 18:27 Freq: Status: Active Protocol: Document 10/28/23 14:30 LRN (Rec: 10/28/23 16:54 LRN [id number]) Physical Therapy Assessment Rehab Potential Rehabilitation Potential Fair Evaluation Complexity Number of Personal Factors/Comorbidities 3 or More Number of Body Systems Impaired 4 or More Clinical Presentation at Evaluation Evolving Impairments Impairments Pain,ROM,Soft Tissue Mobility, Strength Goals Three Impairment Pt not able to extend R hand digits 3, 4 with forcing straight. Short Term Goal (STG) Pt educated in use of modalities to reduce inflammation of R hand ( contrast bath, crotherapy). STG Duration 11/14/23 Architectural Coating Finisher Goal (LTG) Be able to extend the R ring/ middle finger and be able to open his hand on its own with self massage. LTG Duration 11/28/23 Two Impairment Locking of R ring/middle finger at MCP/PIP jts with gripping motion Short Term Goal (STG) Improve R hand finger extension strength to 2/5 ( primarily digits 3-5). STG Duration 11/14/23 Custodial Goal (LTG) Pt will be able to minimize onset of R ring/middle finger locking up with a motion of flexion of fingers, by modifying activities and using relaxation procedures. LTG Duration 11/28/23 One Impairment Pt lacks appropriates self care HEP Custodial Goal (LTG) Pt will be independent in R wrist (ext/sup), R finger ext strengthening, intrinsics ( palmar flex), finger tip bends. LTG Duration 11/28/23 Assessment Summary Assessment Pt is a 73 yo male who appears to have R hand 3rd digit and worse with 4th digit trigger fingers vs Dupuytren's contracture. He also demonstrates decreased R wrist /forearm mobility (extension/ supination), decreased 4th/3rd digits finger extension strength and inability to perform fist gripping ex due to locking up of the fingers after gripping. The pt has spent the last 6 months forcibly opening his R fingers when locking; therefore it's possible other damage may have occured, making it less likely for a full return to function. 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 The pt would then benefit from skilled physical therapy for heat or parafin dip, massage, finger stretches and manual of the finger joints. Physical Therapy Plan Frequency and Duration Frequency of Treatment 2x/Week Duration of treatment (weeks) 4 Plan of Care Start Date 10/28/23 Plan of Care End Date 11/28/23 Therapeutic Interventions Therapeutic Interventions Home Exercise Program,Joint Mobilizations,Manual Therapy, Self-Care/Home Management,Soft Tissue Mobilization, Therapeutic Exercises Modalities Cold Pack/Ice Massage,Hot Packs Other Referrals/Consults Referrals/Consults Recommended Recommend pt be referred to Certified Hand Specialist ( MATTI Elizondo, at [facility]) for a custom fit volar splint to prevent fingers locking into flexion during sleep for the right 4th and 3rd digit MCP/PIP joints to improve the pt's quality of sleep and functional instrument panel assembler. [facility] may have a certified hand specialist. Next Visit Focus/Plan Next Note Type Treatment Note Next Visit Plan Next: HEP & possible DC. Refer pt to [facility] for splint to prevent finger flexion, might continue with PT for soft tissue treatments, ROM, modalities, and modifications to activities. Issue HEP: Wrist ROM ex's, finger extension & intrinsic strengthening, finger tip bends; information for R hand supports to limit flexion of R ring>middle finger, Tendon gliding ex's & teach self STM to release finger when locking up. Use of contrast bath to decrease inflammation. Educate to modify activity of opening/closing jars by using your left hand to open them and switching to your right to close them. Additionally, there are various jar marketing analytics manager devices available to reduce the stress on your hand during this task. To modify the way in which you open doors, ( lever-style doorknobs), kitchen or workshop tools with larger, rounded and/or or contoured handles. Plan of Care Dates Plan of Care Start Date 10/28/23 Plan of Care End Date 11/28/23 Electronically Signed by: Maday Arzate, PT 10/28/23 0536 If you are in agreement with this Plan of Care, please return a signed and dated copy. I have reviewed this Plan of Care and certify that the skilled therapy services above are required to meet the patient?s needs. Physician Signature Date Printed Name and Credentials Clinical Instructor Signature Printed Name and Credentials
--- NOTE | 2023-10-28 17:05 | PT.OIE ---
Current Diagnoses Trigger finger, right middle finger (10/28/23) Trigger finger, right ring finger (10/28/23) Palmar fascial fibromatosis [Dupuytren] (10/28/23) Past Medical History (Last Updated 09/12/23 @ 15:21 by Kyle Vasquez DO) Adhesive capsulitis BPH (benign prostatic hyperplasia) Chronic interstitial cystitis with hematuria Chronic kidney disease Class 1 obesity Dupuytren contracture of right hand Essential hypertension Left shoulder strain Other chronic pain (09/20/16) Plaque psoriasis Sarcoidosis Sleep apnea Thrombocytopenia (12/20/13) Uncontrolled type 2 diabetes mellitus (12/20/13) Well adult exam Visit Care Team Role Provider Type Kyle Vasquez DO Attending Provider Physician Family Provider Primary Care Provider Referring Provider Specialty: Family Practice Address: [address] [place] [address], [facility] Email: [email or web address] Physical Therapy Initial Evaluation PT-OP-A Visit Information Start: 10/21/23 18:27 Freq: Status: Active Protocol: Document 10/28/23 14:30 LRN (Rec: 10/28/23 16:54 LRN [id number]) Out-Patient Physical Therapy Visit Information Visit Information Visit Type Initial Evaluation Visit Start Time 14:38 Visit Stop Time 15:30 Visit Number 1 Evaluation Information Evaluation Date 10/28/23 Precautions Precautions PMH: Torn rotator cuff (byron) not repaired, diabetic, chronic kidney disease (2 days ago went to ER and was told did not yet need dialysis), neuropathy of L leg, interstitial cystitis. 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 Chemotherapy and accupuncture resulted in disappearance of hard lumps. Has a mass in lung. PT-OP-B Current Condition Start: 10/21/23 18:27 Freq: Status: Active Protocol: Document 10/28/23 14:30 LRN (Rec: 10/28/23 16:54 LRN [id number]) Current Condition History of Current Condition Onset Date 6 months ago. Current Complaints R ring and middle fingers lock up. History of Current Condition 6 months ago was removing baseboards and moulding around home (to put in new riaz) and one day was pulling baseboard the 2 R middle and ring finger 'locked up. Now the the ring finger locks up every day, so he forcefully opens it. The middle finger hasn't locked up in a month. Prior Treatments and Tests None. Treatment Goals Patient/Caregiver Goals Pt goal with therapy: Be able to straighten the R ring/middle finger on its own. Not have the R ring/middle finger lock up. HEP Personal Factors Other Personal Factors That May Effect Retired, and is always doing Therapy/Recovery something with your hands ( working on [employer]). Has a new puppy. Pt is R handed. Sarcoidosis, Diabetic history. PT-OP-C Subjective Start: 10/21/23 18:27 Freq: Status: Active Protocol: Document 10/28/23 14:30 LRN (Rec: 10/28/23 16:54 LRN [id number]) OP-PT Pain Assessment Pain Assessment Grid Paper Pain Assessment Grid Completed Yes Location R ring/middle fingers Pain Location Details DIP to to middle of palm Intensity 6 Scale Used Numeric (0 - 10) Description Burning,Throbbing Description- Other After he pops the finger straight pain is in the hand. Frequency Daily Pain Duration hour if not working. Other Pain Aggravating Factors flexing fingers. Pain Alleviating Factors Heat PT-OP-F Manual Assessment Start: 10/21/23 18:27 Freq: Status: Active Protocol: Document 10/28/23 14:30 LRN (Rec: 10/28/23 16:54 LRN [id number]) Manual Assessments Soft Tissue Assessment Soft Tissue Mobility Assessment Increased soft tissue density at R ring finger between PIP and MCP jt. Increased soft tissue tension, possible nodule between R ring/middle finger in distal 1 /2 of hand. Joint Mobility Assessment Joint Mobility Assessment R Ring finger: PIP jt: no mobility palmar, MCP excessive palmar mob, R middle finger: PIP jt excessive dorsal mob, MCP jt excessive dorsal mob. PT-OP-H Neuro Start: 10/21/23 18:27 Freq: Status: Active Protocol: Document 10/28/23 14:30 LRN (Rec: 10/28/23 16:54 LRN [id number]) Sensation Evaluation Gross Sensation Gross Sensation WNL PT-OP-J Posture/Palpation/Skin Start: 10/21/23 18:27 Freq: Status: Active Protocol: Document 10/28/23 14:30 LRN (Rec: 10/28/23 16:54 LRN [id number]) Posture Evaluation Position Sitting Head/C-Spine Posture Forward Head Shoulder Posture (R) Forward,(L) Elevated Arm Posture (L) Internally Rotated,(R) Internally Rotated PT-OP-K Range of Motion Start: 10/21/23 18:27 Freq: Status: Active Protocol: Document 10/28/23 14:30 LRN (Rec: 10/28/23 16:54 LRN [id number]) Wrist Goniometric Range of Motion Wrist Right Flexion Active (degrees) 55 Extension Active (degrees) 45 Left Flexion Active (degrees) 55 Extension Active (degrees) 70 Finger Goniometric Range of Motion Finger Left Third Finger ROM WFL Yes MCP Flexion Active (degrees) 86 PIP Flexion Active (degrees) 80 DIP Flexion Active (70-90 degrees) 60 L Left Fourth MCP Flexion Active (degrees) 88 PIP Flexion Active (degrees) 90 DIP Flexion Active (70-90 degrees) 70 Right Third MCP Flexion Active (degrees) 70 PIP Flexion Active (degrees) 80 DIP Flexion Active (70-90 degrees) 56 L Right Fourth Finger ROM WFL No MCP Flexion Active (degrees) 76 PIP Flexion Active (degrees) 90 DIP Flexion Active (70-90 degrees) 50 L PT-OP-M Strength Start: 10/21/23 18:27 Freq: Status: Active Protocol: Document 10/28/23 14:30 LRN (Rec: 10/28/23 16:54 LRN [id number]) Wrist Strength Wrist Manual Muscle Testing Right Wrist Pronation (degrees) 90 Wrist Supination (degrees) 60 Comments Strengh is WNL Left Wrist Pronation (degrees) 90 Wrist Supination (degrees) 70 Comments Strength is WNL Finger/Thumb Strength Finger Manual Muscle Testing Right Fifth Extension (thumb C8) 1 Trace Adduction 4 Good Abduction (fingers T1) 4 Good Comments Deferred MMT of flexion L hand: Digit 5 is normal strength. Right Fourth Extension (thumb C8) 2 Poor Adduction 4 Good Abduction (fingers T1) 4 Good Comments Deferred testing flexors due to locking history of finger. L hand: Digit 4 is normal strength. Right Third Extension (thumb C8) 2 Poor Adduction 4 Good Abduction (fingers T1) 4 Good Comments Deferred testing flexors due to locking history of finger. L hand: Digit 3 is normal strength. Hand Auto Porter/Pinch Strength Hand Dominance Hand Dominance Right PT-OP-Q Treatments Start: 10/21/23 18:27 Freq: Status: Active Protocol: Document 10/28/23 14:30 LRN (Rec: 10/28/23 16:54 LRN [id number]) Manual Therapy Treatment Consent Patient gave verbal consent for manual Yes treatment Soft Tissue Mobilization R hand Body Location R hand: fingers 3 & 4 flexor tendons Mobilization Type Cross-Friction Intensity/Depth Moderate Body Position Sitting Comments Treatment performed 2 separate times through therapy. Self-Care/Home Management Treatment Education Other Education Discussed results of evaluation, goals, treatment, and plan of care (POC) with pt , attendance/cx/dns policy; pt agreeable to evaluation, goals, treatment, attendance/ cx/dns policy and POC. Activities Self-Care/Home Management Activities Pt instructed in self massage of fingers at MCP jts and to relax hand until release if felt vs forcing fingers open. PT-OP-T Assessment and Plan Start: 10/21/23 18:27 Freq: Status: Active Protocol: Document 10/28/23 14:30 LRN (Rec: 10/28/23 16:54 [facility] [id number]) Physical Therapy Assessment Rehab Potential Rehabilitation Potential Fair Evaluation Complexity Number of Personal Factors/Comorbidities 3 or More Number of Body Systems Impaired 4 or More Clinical Presentation at Evaluation Evolving Impairments Impairments Pain,ROM,Soft Tissue Mobility, Strength Goals Three Impairment Pt not able to extend R hand digits 3, 4 with forcing straight. Short Term Goal (STG) Pt educated in use of modalities to reduce inflammation of R hand ( contrast bath, crotherapy). STG Duration 11/14/23 [employer] Well Treatment Operator Goal (LTG) Be able to extend the R ring/ middle finger and be able to open his hand on its own with self massage. LTG Duration 11/28/23 Two Impairment Locking of R ring/middle finger at MCP/PIP jts with gripping motion Short Term Goal (STG) Improve R hand finger extension strength to 2/5 ( primarily digits 3-5). STG Duration 11/14/23 [facility] Goal (LTG) Pt will be able to minimize onset of R ring/middle finger locking up with a motion of flexion of fingers, by modifying activities and using relaxation procedures. LTG Duration 11/28/23 One Impairment Pt lacks appropriates self care HEP Oil [employer] Well Treatment Operator Goal (LTG) Pt will be independent in R wrist (ext/sup), R finger ext strengthening, intrinsics ( palmar flex), finger tip bends. LTG Duration 11/28/23 Assessment Summary Assessment Pt is a 73 yo male who appears to have R hand 3rd digit and worse with 4th digit trigger fingers vs Dupuytren's contracture. He also demonstrates decreased R wrist /forearm mobility (extension/ supination), decreased 4th/3rd digits finger extension strength and inability to perform fist gripping ex due to locking up of the fingers after gripping. The pt has spent the last 6 months forcibly opening his R fingers when locking; therefore it's possible other damage may have occured, making it less likely for a full return to function. 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 The pt would then benefit from skilled physical therapy for heat or parafin dip, massage, finger stretches and manual of the finger joints. Physical Therapy Plan Frequency and Duration Frequency of Treatment 2x/Week Duration of treatment (weeks) 4 Plan of Care Start Date 10/28/23 Plan of Care End Date 11/28/23 Therapeutic Interventions Therapeutic Interventions Home Exercise Program,Joint Mobilizations,Manual Therapy, Self-Care/Home Management,Soft Tissue Mobilization, Therapeutic Exercises Modalities Cold Pack/Ice Massage,Hot Packs Other Referrals/Consults Referrals/Consults Recommended Recommend pt be referred to Certified Hand Specialist ( MATTI Elizondo, at [facility]) for a custom fit volar splint to prevent fingers locking into flexion during sleep for the right 4th and 3rd digit MCP/PIP joints to 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 [facility] may have a certified hand specialist. Next Visit Focus/Plan Next Note Type Treatment Note Next Visit Plan Next: HEP & possible DC. Refer pt to [facility] for splint to prevent finger flexion, might continue with PT for soft tissue treatments, ROM, modalities, and modifications to activities. Issue HEP: Wrist ROM ex's, finger extension & intrinsic strengthening, finger tip bends; information for R hand supports to limit flexion of R ring>middle finger, Tendon gliding ex's & teach self STM to release finger when locking up. Use of contrast bath to decrease inflammation. Educate to modify activity of opening/closing jars by using your left hand to open them and switching to your right to close them. Additionally, there are various jar emergency medical dispatcher devices available to reduce the stress on your hand during this task. To modify the way in which you open doors, ( lever-style doorknobs), kitchen or workshop tools with larger, rounded and/or or contoured handles.
--- NOTE | 2023-10-28 17:06 | PT.OPPOC ---
Physical, Occupational & Speech Therapy At [facility] Current Diagnoses Trigger finger, right middle finger (10/28/23) Trigger finger, right ring finger (10/28/23) Palmar fascial fibromatosis [Dupuytren] (10/28/23) Visit Care Team Role Provider Type Kyle Vasquez DO Attending Provider Physician Family Provider Primary Care Provider Referring Provider Specialty: Family Practice Address: [address] [place] [address], [facility] Email: [email or web address] Of Care PT-OP-B Current Condition Start: 10/21/23 18:27 Freq: Status: Active Protocol: Document 10/28/23 14:30 LRN (Rec: 10/28/23 16:54 LRN [id number]) Current Condition History of Current Condition Onset Date 6 months ago. Current Complaints R ring and middle fingers lock up. History of Current Condition 6 months ago was removing baseboards and moulding around home (to put in new riaz) and one day was pulling baseboard the 2 R middle and ring finger 'locked up. Now the the ring finger locks up every day, so he forcefully opens it. The middle finger hasn't locked up in a month. Prior Treatments and Tests None. Treatment Goals Patient/Caregiver Goals Pt goal with therapy: Be able to straighten the R ring/middle finger on its own. Not have the R ring/middle finger lock up. HEP Personal Factors Other Personal Factors That May Effect Retired, and is always doing Therapy/Recovery something with your hands ( working on [employer]). Has a new puppy. Pt is R handed. Sarcoidosis, Diabetic history. PT-OP-T Assessment and Plan Start: 10/21/23 18:27 Freq: Status: Active Protocol: Document 10/28/23 14:30 LRN (Rec: 10/28/23 16:54 LRN [id number]) Physical Therapy Assessment Rehab Potential Rehabilitation Potential Fair Evaluation Complexity Number of Personal Factors/Comorbidities 3 or More Number of Body Systems Impaired 4 or More Clinical Presentation at Evaluation Evolving Impairments Impairments Pain,ROM,Soft Tissue Mobility, Strength Goals Three Impairment Pt not able to extend R hand digits 3, 4 with forcing straight. Short Term Goal (STG) Pt educated in use of modalities to reduce inflammation of R hand ( contrast bath, crotherapy). STG Duration 11/14/23 Ship Fitter Goal (LTG) Be able to extend the R ring/ middle finger and be able to open his hand on its own with self massage. LTG Duration 11/28/23 Two Impairment Locking of R ring/middle finger at MCP/PIP jts with gripping motion Short Term Goal (STG) Improve R hand finger extension strength to 2/5 ( primarily digits 3-5). STG Duration 11/14/23 Ship Fitter Goal (LTG) Pt will be able to minimize onset of R ring/middle finger locking up with a motion of flexion of fingers, by modifying activities and using relaxation procedures. LTG Duration 11/28/23 One Impairment Pt lacks appropriates self care HEP Senior Care Goal (LTG) Pt will be independent in R wrist (ext/sup), R finger ext strengthening, intrinsics ( palmar flex), finger tip bends. LTG Duration 11/28/23 Assessment Summary Assessment Pt is a 73 yo male who appears to have R hand 3rd digit and worse with 4th digit trigger fingers vs Dupuytren's contracture. He also demonstrates decreased R wrist /forearm mobility (extension/ supination), decreased 4th/3rd digits finger extension strength and inability to perform fist gripping ex due to locking up of the fingers after gripping. The pt has spent the last 6 months forcibly opening his R fingers when locking; therefore it's possible other damage may have occured, making it less likely for a full return to function. Pt would benefit from referral to a Certified Hand Specialist MATTI Elizondo, at 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 The pt would then benefit from skilled physical therapy for heat or parafin dip, massage, finger stretches and manual of the finger joints. Physical Therapy Plan Frequency and Duration Frequency of Treatment 2x/Week Duration of treatment (weeks) 4 Plan of Care Start Date 10/28/23 Plan of Care End Date 11/28/23 Therapeutic Interventions Therapeutic Interventions Home Exercise Program,Joint Mobilizations,Manual Therapy, Self-Care/Home Management,Soft Tissue Mobilization, Therapeutic Exercises Modalities Cold Pack/Ice Massage,Hot Packs Other Referrals/Consults Referrals/Consults Recommended Recommend pt be referred to Certified Hand Specialist ( MATTI Elizondo, at 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 [facility] may have a certified hand specialist. Next Visit Focus/Plan Next Note Type Treatment Note Next Visit Plan Next: HEP & possible DC. Refer pt to [facility] for splint to prevent finger flexion, might continue with PT for soft tissue treatments, ROM, modalities, and modifications to activities. Issue HEP: Wrist ROM ex's, finger extension & intrinsic strengthening, finger tip bends; information for R hand supports to limit flexion of R ring>middle finger, Tendon gliding ex's & teach self STM to release finger when locking up. Use of contrast bath to decrease inflammation. Educate to modify activity of opening/closing jars by using your left hand to open them and switching to your right to close them. Additionally, there are various jar road conductor devices available to reduce the stress on your hand during this task. To modify the way in which you open doors, ( lever-style doorknobs), kitchen or workshop tools with larger, rounded and/or or contoured handles. Plan of Care Dates Plan of Care Start Date 10/28/23 Plan of Care End Date 11/28/23 Electronically Signed by: Maday Arzate, PT 10/28/23 [id number] If you are in agreement with this Plan of Care, please return a signed and dated copy. I have reviewed this Plan of Care and certify that the skilled therapy services above are required to meet the patient?s needs. Physician Signature Date Printed Name and Credentials Clinical Instructor Signature Printed Name and Credentials
--- NOTE | 2023-10-31 15:37 | PT.OTN ---
Current Diagnoses Trigger finger, right middle finger (10/31/23) Trigger finger, right ring finger (10/31/23) Palmar fascial fibromatosis [Dupuytren] (10/31/23) Physical Therapy Treatment Note PT-OP-A Visit Information Start: 10/21/23 18:27 Freq: Status: Active Protocol: Document 10/31/23 14:34 LRN (Rec: 10/31/23 15:36 LRN [id number]) Out-Patient Physical Therapy Visit Information Visit Information Visit Type Treatment Note Visit Start Time 14:34 Visit Stop Time 15:16 Visit Number 2 Evaluation Information Evaluation Date 10/28/23 Precautions Precautions PMH: Torn rotator cuff (byron) not repaired, diabetic, chronic kidney disease (2 days ago went to ER and was told did not yet need dialysis), neuropathy of L leg, interstitial cystitis. 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 Chemotherapy and accupuncture resulted in disappearance of hard lumps. Has a mass in lung. PT-OP-B Current Condition Start: 10/21/23 18:27 Freq: Status: Active Protocol: Document 10/28/23 14:30 LRN (Rec: 10/28/23 16:54 LRN [id number]) Current Condition History of Current Condition Onset Date 6 months ago. Current Complaints R ring and middle fingers lock up. History of Current Condition 6 months ago was removing baseboards and moulding around home (to put in new riaz) and one day was pulling baseboard the 2 R middle and ring finger 'locked up. Now the the ring finger locks up every day, so he forcefully opens it. The middle finger hasn't locked up in a month. Prior Treatments and Tests None. Treatment Goals Patient/Caregiver Goals Pt goal with therapy: Be able to straighten the R ring/middle finger on its own. Not have the R ring/middle finger lock up. HEP Personal Factors Other Personal Factors That May Effect Retired, and is always doing Therapy/Recovery something with your hands ( working on [employer]). Has a new puppy. Pt is R handed. Sarcoidosis, Diabetic history. PT-OP-C Subjective Start: 10/21/23 18:27 Freq: Status: Active Protocol: Document 10/31/23 14:34 LRN (Rec: 10/31/23 15:36 LRN [id number]) OP-PT Subjective Patient Comments Patient Comments Since last session he feels 95% of time it is working to release the R finger. Pain is less because not popping finger straight. PT-OP-F Manual Assessment Start: 10/21/23 18:27 Freq: Status: Active Protocol: Document 10/28/23 14:30 LRN (Rec: 10/28/23 16:54 LRN [id number]) Manual Assessments Soft Tissue Assessment Soft Tissue Mobility Assessment Increased soft tissue density at R ring finger between PIP and MCP jt. Increased soft tissue tension, possible nodule between R ring/middle finger in distal 1 /2 of hand. Joint Mobility Assessment Joint Mobility Assessment R Ring finger: PIP jt: no mobility palmar, MCP excessive palmar mob, R middle finger: PIP jt excessive dorsal mob, MCP jt excessive dorsal mob. PT-OP-H Neuro Start: 10/21/23 18:27 Freq: Status: Active Protocol: Document 10/28/23 14:30 LRN (Rec: 10/28/23 16:54 LRN [id number]) Sensation Evaluation Gross Sensation Gross Sensation WNL PT-OP-J Posture/Palpation/Skin Start: 10/21/23 18:27 Freq: Status: Active Protocol: Document 10/28/23 14:30 LRN (Rec: 10/28/23 16:54 LRN [id number]) Posture Evaluation Position Sitting Head/C-Spine Posture Forward Head Shoulder Posture (R) Forward,(L) Elevated Arm Posture (L) Internally Rotated,(R) Internally Rotated PT-OP-K Range of Motion Start: 10/21/23 18:27 Freq: Status: Active Protocol: Document 10/28/23 14:30 LRN (Rec: 10/28/23 16:54 LRN [id number]) Wrist Goniometric Range of Motion Wrist Right Flexion Active (degrees) 55 Extension Active (degrees) 45 Left Flexion Active (degrees) 55 Extension Active (degrees) 70 Finger Goniometric Range of Motion Finger Left Third Finger ROM WFL Yes MCP Flexion Active (degrees) 86 PIP Flexion Active (degrees) 80 DIP Flexion Active (70-90 degrees) 60 L Left Fourth MCP Flexion Active (degrees) 88 PIP Flexion Active (degrees) 90 DIP Flexion Active (70-90 degrees) 70 Right Third MCP Flexion Active (degrees) 70 PIP Flexion Active (degrees) 80 DIP Flexion Active (70-90 degrees) 56 L Right Fourth Finger ROM WFL No MCP Flexion Active (degrees) 76 PIP Flexion Active (degrees) 90 DIP Flexion Active (70-90 degrees) 50 L PT-OP-M Strength Start: 10/21/23 18:27 Freq: Status: Active Protocol: Document 10/28/23 14:30 LRN (Rec: 10/28/23 16:54 LRN [id number]) Wrist Strength Wrist Manual Muscle Testing Right Wrist Pronation (degrees) 90 Wrist Supination (degrees) 60 Comments Strengh is WNL Left Wrist Pronation (degrees) 90 Wrist Supination (degrees) 70 Comments Strength is WNL Finger/Thumb Strength Finger Manual Muscle Testing Right Fifth Extension (thumb C8) 1 Trace Adduction 4 Good Abduction (fingers T1) 4 Good Comments Deferred MMT of flexion L hand: Digit 5 is normal strength. Right Fourth Extension (thumb C8) 2 Poor Adduction 4 Good Abduction (fingers T1) 4 Good Comments Deferred testing flexors due to locking history of finger. L hand: Digit 4 is normal strength. Right Third Extension (thumb C8) 2 Poor Adduction 4 Good Abduction (fingers T1) 4 Good Comments Deferred testing flexors due to locking history of finger. L hand: Digit 3 is normal strength. Hand Risk Analyst/Pinch Strength Hand Dominance Hand Dominance Right PT-OP-Q Treatments Start: 10/21/23 18:27 Freq: Status: Active Protocol: Document 10/31/23 14:34 LRN (Rec: 10/31/23 15:36 LRN [id number]) Therapeutic Exercises Sitting Exercises Self STM to R hand Sitting Exercise Name Reviewed & teach self STM to release finger when locking up Side right Reps/Minutes 8' Fingers together Sitting Exercise Name Active Finger AD Side bilateral Reps/Minutes 5-10 SH x 10 Finger spreading Sitting Exercise Name Active & Passive Finger AB Side bilateral Reps/Minutes 5-10 SH x 10 DIP flex Sitting Exercise Name PROM DIP flex Side right Reps/Minutes 6' Table top ex Sitting Exercise Name Active finger MCP jts flex/ext Side bilateral Reps/Minutes 15x Comments Extra time for training to flex only at MCP jts. Manual Therapy Treatment Soft Tissue Mobilization R hand Body Location R hand: fingers 3 & 4 flexor tendons Mobilization Type Cross-Friction Intensity/Depth Moderate Body Position Sitting Comments Pt demonstrated self STM of finger flexor tendons to release them from locking. PT-OP-T Assessment and Plan Start: 10/21/23 18:27 Freq: Status: Active Protocol: Document 10/31/23 14:34 LRN (Rec: 10/31/23 15:36 LRN [id number]) Physical Therapy Assessment Goals Three Impairment Pt not able to extend R hand digits 3, 4 with forcing straight. Short Term Goal (STG) Pt educated in use of modalities to reduce inflammation of R hand ( contrast bath, crotherapy). STG Duration 11/14/23 Intermediate Goal (LTG) Be able to extend the R ring/ middle finger and be able to open his hand on its own with self massage. 10/31/23: Pt 95% of the time is able to open his had on his own with self massage after locking. LTG Duration 11/28/23 progressed . Two Impairment Locking of R ring/middle finger at MCP/PIP jts with gripping motion Short Term Goal (STG) Improve R hand finger extension strength to 2/5 ( primarily digits 3-5). STG Duration 11/14/23 Want Ad Receiver Goal (LTG) Pt will be able to minimize onset of R ring/middle finger locking up with a motion of flexion of fingers, by modifying activities and using relaxation procedures. 10/31/23: Pt able to release R 3rd & 4th digits when locked with self STM. LTG Duration 11/28/23 progressed 10/31/23 One Impairment Pt lacks appropriates self care HEP Intermediate Goal (LTG) Pt will be independent in R wrist (ext/sup), R finger ext strengthening, intrinsics ( palmar flex), finger tip bends. LTG Duration 11/28/23 Assessment Summary Assessment Pt is a 73 yo male with R hand 3rd digit and worse with 4th digit trigger fingers vs Dupuytren's contracture. 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 Physical Therapy Plan Frequency and Duration Frequency of Treatment 2x/Week Duration of treatment (weeks) 4 Plan of Care Start Date 10/28/23 Plan of Care End Date 11/28/23 Next Visit Focus/Plan Next Note Type Treatment Note Next Visit Plan Next: HEP & DC if pt able to see hand specialist ([place] or [facility]) for splint to prevent finger flexion. If not able to get into hand specialist, continue with PT for soft tissue treatments, ROM, modalities, and modifications to activities. Educate: Ice/Contrast baths for edema management. Issue HEP: Wrist ROM ex's, finger extension & intrinsic strengthening, finger tip bends; information for R hand supports to limit flexion of R ring>middle finger, Tendon gliding ex's. Use of contrast bath to decrease inflammation . Educate to modify activity of opening/closing jars by using your left hand to open them and switching to your right to close them. Additionally, there are various jar plywood patcher devices available to reduce the stress on your hand during this task . To modify the way in which you open doors, (lever-style doorknobs), kitchen or workshop tools with larger, rounded and/or or contoured handles.
--- NOTE | 2023-11-04 15:50 | PT.OTN ---
Current Diagnoses Trigger finger, right middle finger (11/04/23) Trigger finger, right ring finger (11/04/23) Palmar fascial fibromatosis [Dupuytren] (11/04/23) Physical Therapy Treatment Note PT-OP-A Visit Information Start: 10/21/23 18:27 Freq: Status: Active Protocol: Document 11/04/23 14:31 LRN (Rec: 11/04/23 15:50 LRN [id number]) Out-Patient Physical Therapy Visit Information Visit Information Visit Type Treatment Note Visit Note Late Entry UE Quickdash scored Visit Start Time 14:31 Visit Stop Time 15:18 Visit Number 3 Evaluation Information Evaluation Date 10/28/23 Precautions Precautions PMH: Torn rotator cuff (byron) not repaired, diabetic, chronic kidney disease (2 days ago went to ER and was told did not yet need dialysis), neuropathy of L leg, interstitial cystitis. 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 Chemotherapy and accupuncture resulted in disappearance of hard lumps. Has a mass in lung. PT-OP-B Current Condition Start: 10/21/23 18:27 Freq: Status: Active Protocol: Document 10/28/23 14:30 LRN (Rec: 10/28/23 16:54 LRN [id number]) Current Condition History of Current Condition Onset Date 6 months ago. Current Complaints R ring and middle fingers lock up. History of Current Condition 6 months ago was removing baseboards and moulding around home (to put in new riaz) and one day was pulling baseboard the 2 R middle and ring finger 'locked up. Now the the ring finger locks up every day, so he forcefully opens it. The middle finger hasn't locked up in a month. Prior Treatments and Tests None. Treatment Goals Patient/Caregiver Goals Pt goal with therapy: Be able to straighten the R ring/middle finger on its own. Not have the R ring/middle finger lock up. HEP Personal Factors Other Personal Factors That May Effect Retired, and is always doing Therapy/Recovery something with your hands ( working on [employer]). Has a new puppy. Pt is R handed. Sarcoidosis, Diabetic history. PT-OP-C Subjective Start: 10/21/23 18:27 Freq: Status: Active Protocol: Document 11/04/23 14:31 LRN (Rec: 11/04/23 15:50 LRN [id number]) OP-PT Subjective Patient Comments Patient Comments States his fingers keep locking up but he has not had to force them straight. Will contact Dr. Kyle Vasquez Patient Questionnaires Quick Dash- Upper Extremity Quick Dash UE Score 45.45 (late entry-completed ) Quick Dash UE Impairment 40 to 59% Impaired (Score 40- 59) PT-OP-F Manual Assessment Start: 10/21/23 18:27 Freq: Status: Active Protocol: Document 10/28/23 14:30 LRN (Rec: 10/28/23 16:54 LRN [id number]) Manual Assessments Soft Tissue Assessment Soft Tissue Mobility Assessment Increased soft tissue density at R ring finger between PIP and MCP jt. Increased soft tissue tension, possible nodule between R ring/middle finger in distal 1 /2 of hand. Joint Mobility Assessment Joint Mobility Assessment R Ring finger: PIP jt: no mobility palmar, MCP excessive palmar mob, R middle finger: PIP jt excessive dorsal mob, MCP jt excessive dorsal mob. PT-OP-H Neuro Start: 10/21/23 18:27 Freq: Status: Active Protocol: Document 10/28/23 14:30 LRN (Rec: 10/28/23 16:54 LRN [id number]) Sensation Evaluation Gross Sensation Gross Sensation WNL PT-OP-J Posture/Palpation/Skin Start: 10/21/23 18:27 Freq: Status: Active Protocol: Document 10/28/23 14:30 LRN (Rec: 10/28/23 16:54 LRN [id number]) Posture Evaluation Position Sitting Head/C-Spine Posture Forward Head Shoulder Posture (R) Forward,(L) Elevated Arm Posture (L) Internally Rotated,(R) Internally Rotated PT-OP-K Range of Motion Start: 10/21/23 18:27 Freq: Status: Active Protocol: Document 10/28/23 14:30 LRN (Rec: 10/28/23 16:54 LRN [id number]) Wrist Goniometric Range of Motion Wrist Right Flexion Active (degrees) 55 Extension Active (degrees) 45 Left Flexion Active (degrees) 55 Extension Active (degrees) 70 Finger Goniometric Range of Motion Finger Left Third Finger ROM WFL Yes MCP Flexion Active (degrees) 86 PIP Flexion Active (degrees) 80 DIP Flexion Active (70-90 degrees) 60 L Left Fourth MCP Flexion Active (degrees) 88 PIP Flexion Active (degrees) 90 DIP Flexion Active (70-90 degrees) 70 Right Third MCP Flexion Active (degrees) 70 PIP Flexion Active (degrees) 80 DIP Flexion Active (70-90 degrees) 56 L Right Fourth Finger ROM WFL No MCP Flexion Active (degrees) 76 PIP Flexion Active (degrees) 90 DIP Flexion Active (70-90 degrees) 50 L PT-OP-M Strength Start: 10/21/23 18:27 Freq: Status: Active Protocol: Document 10/28/23 14:30 LRN (Rec: 10/28/23 16:54 LRN [id number]) Wrist Strength Wrist Manual Muscle Testing Right Wrist Pronation (degrees) 90 Wrist Supination (degrees) 60 Comments Strengh is WNL Left Wrist Pronation (degrees) 90 Wrist Supination (degrees) 70 Comments Strength is WNL Finger/Thumb Strength Finger Manual Muscle Testing Right Fifth Extension (thumb C8) 1 Trace Adduction 4 Good Abduction (fingers T1) 4 Good Comments Deferred MMT of flexion L hand: Digit 5 is normal strength. Right Fourth Extension (thumb C8) 2 Poor Adduction 4 Good Abduction (fingers T1) 4 Good Comments Deferred testing flexors due to locking history of finger. L hand: Digit 4 is normal strength. Right Third Extension (thumb C8) 2 Poor Adduction 4 Good Abduction (fingers T1) 4 Good Comments Deferred testing flexors due to locking history of finger. L hand: Digit 3 is normal strength. Hand Water Reclamation Systems Operator/Pinch Strength Hand Dominance Hand Dominance Right PT-OP-Q Treatments Start: 10/21/23 18:27 Freq: Status: Active Protocol: Document 11/04/23 14:31 LRN (Rec: 11/04/23 15:50 LRN [id number]) Therapeutic Exercises Sitting Exercises AROM hand intrinsics Sitting Exercise Name Table top>DIP/PIP flex Side right Reps/Minutes 10x 2 AROM fingers PIP/DIP AROM Sitting Exercise Name PIP/DIP AROM digits 2-5. Side right Reps/Minutes 10x 2 Comments Stabilizing at MCP to prevent active flexion. Fingers together Sitting Exercise Name Active Finger AB/AD/extension Side bilateral Reps/Minutes 5-10 SH x 10 Finger spreading Sitting Exercise Name Active & Passive Finger AB Side bilateral Reps/Minutes 5-10 SH, 10x 2 DIP flex Sitting Exercise Name PROM DIP flex Side right Reps/Minutes 6' Comments Holding at proximal ends of DIP jts to flex. Table top ex Sitting Exercise Name (Table top) Active finger MCP jts flex/ext while stabilizing MCP jts Side bilateral Reps/Minutes 15x Comments Holding at proximal ends of MCP jts to flex. Manual Therapy Treatment Soft Tissue Mobilization R hand Body Location R hand: fingers 3 > 4 flexor tendons and interosseous space . Mobilization Type Cross-Friction,Strumming Intensity/Depth Moderate Body Position Sitting Self-Care/Home Management Treatment Education Other Education Discussed at length how to modify objects he needed to grasp to make it wide enough to no have fingers lock. Discussed large handled eating utensils, work objects. Educated pt in use of contrast bath for inflammation of the hand. Activities Self-Care/Home Management Activities Issued & reviewed contrast bath handout. Issued & reviewed HEP: Tendon gliding ex (-table top, -DIP/ PIP flex/ext, and AROM intrinsics of table top<>DIP/ PIP flex/ext). PT-OP-T Assessment and Plan Start: 10/21/23 18:27 Freq: Status: Active Protocol: Document 11/04/23 14:31 LRN (Rec: 11/04/23 15:50 LRN [id number]) Physical Therapy Assessment Goals Three Impairment Pt not able to extend R hand digits 3, 4 with forcing straight. Short Term Goal (STG) Pt educated in use of modalities to reduce inflammation of R hand ( contrast bath, crotherapy). 11/04/23: Educated pt in Ice/ Contrast baths for edema management. STG Duration 11/14/23 (11/04/23: MET GOAL) Retail Bakery Manager Goal (LTG) Be able to extend the R ring/ middle finger and be able to open his hand on its own with self massage. 10/31/23: Pt 95% of the time is able to open his had on his own with self massage after locking. 11/04/23: Pt able to open his hand 3-4x/day when fingers locked, via self massaging, w/ o having to force open. LTG Duration 11/28/23 (11/04/23: MET GOAL) Two Impairment Locking of R ring/middle finger at MCP/PIP jts with gripping motion Short Term Goal (STG) Improve R hand finger extension strength to 2/5 ( primarily digits 3-5). STG Duration 11/14/23 Retail Bakery Manager Goal (LTG) Pt will be able to minimize onset of R ring/middle finger locking up with a motion of flexion of fingers, by modifying activities and using relaxation procedures. 10/31/23: Pt able to release R 3rd & 4th digits when locked with self STM. LTG Duration 11/28/23 progressed 10/31/23 One Impairment Pt lacks appropriates self care HEP [facility] Goal (LTG) Pt will be independent in R wrist (ext/sup), R finger ext strengthening, intrinsics ( palmar flex), finger tip bends. 11/04/23: HEP: Tendon gliding ex (-table top, -DIP/ PIP flex/ext, and AROM intrinsics of table top<>DIP/ PIP flex/ext). LTG Duration 11/28/23 progressing 11/04/23 Assessment Summary Assessment Pt is a 73 yo male with initially R hand 3rd digit and worse with 4th digit trigger fingers vs Dupuytren's contracture. Today he reports his R hand 4th digit hasn't locked as much, but the 3rd digit is locking 3-4x/day and he is able to straighten the fingers with self massage and not force open. He was able to modify his bisque placer to be able to remove baseboards at home w /o fingers locking. Pt does not have referral to hand specialist yet. Physical Therapy Plan Frequency and Duration Frequency of Treatment 2x/Week Duration of treatment (weeks) 4 Plan of Care Start Date 10/28/23 Plan of Care End Date 11/28/23 Next Visit Focus/Plan Next Note Type Treatment Note Next Visit Plan Next: HEP & DC if pt able to see hand specialist ([facility] or [facility]) for splint to prevent finger flexion. If not able to get into hand specialist, continue with PT for HEP: Wrist ext/sup stretch & AROM, finger ext/AB/AD AROM & strengthening; soft tissue treatments, modalities, and assess response to using noodle for modifications to activities. Issue HEP: Wrist ROM ex's, finger extension; information for R hand supports to limit flexion of R ring>middle finger. Educate to modify activity of opening/closing jars by using your left hand to open them and switching to your right to close them. Additionally, there are various jar structural steel trades worker devices available to reduce the stress on your hand during this task . To modify the way in which you open doors, (lever-style doorknobs), kitchen or workshop tools with larger, rounded and/or or contoured handles.
--- NOTE | 2023-11-14 15:44 | PT.OTN ---
Current Diagnoses Trigger finger, right middle finger (11/14/23) Trigger finger, right ring finger (11/14/23) Palmar fascial fibromatosis [Dupuytren] (11/14/23) Physical Therapy Treatment Note PT-OP-A Visit Information Start: 10/21/23 18:27 Freq: Status: Active Protocol: Document 11/14/23 14:37 LRN (Rec: 11/14/23 15:43 LRN [id number]) Out-Patient Physical Therapy Visit Information Visit Information Visit Type Treatment Note Visit Start Time 14:37 Visit Stop Time 15:22 Visit Number 4 Evaluation Information Evaluation Date 10/28/23 Precautions Precautions PMH: Torn rotator cuff (byron) not repaired, diabetic, chronic kidney disease (2 days ago went to ER and was told did not yet need dialysis), neuropathy of L leg, interstitial cystitis. 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 Chemotherapy and accupuncture resulted in disappearance of hard lumps. Has a mass in lung. PT-OP-B Current Condition Start: 10/21/23 18:27 Freq: Status: Active Protocol: Document 10/28/23 14:30 LRN (Rec: 10/28/23 16:54 LRN [id number]) Current Condition History of Current Condition Onset Date 6 months ago. Current Complaints R ring and middle fingers lock up. History of Current Condition 6 months ago was removing baseboards and moulding around home (to put in new riaz) and one day was pulling baseboard the 2 R middle and ring finger 'locked up. Now the the ring finger locks up every day, so he forcefully opens it. The middle finger hasn't locked up in a month. Prior Treatments and Tests None. Treatment Goals Patient/Caregiver Goals Pt goal with therapy: Be able to straighten the R ring/middle finger on its own. Not have the R ring/middle finger lock up. HEP Personal Factors Other Personal Factors That May Effect Retired, and is always doing Therapy/Recovery something with your hands ( working on [employer]). Has a new puppy. Pt is R handed. Sarcoidosis, Diabetic history. PT-OP-C Subjective Start: 10/21/23 18:27 Freq: Status: Active Protocol: Document 11/14/23 14:37 LRN (Rec: 11/14/23 15:43 LRN [id number]) OP-PT Subjective Patient Comments Patient Comments States his condition is the same. He states he has an appt with MD in 2 wks to discuss hand and kidneys. Middle finger is not locking anymore. States recently he has noticed some days he can go w/ o fingers locking up and other days they lock up all the time. PT-OP-F Manual Assessment Start: 10/21/23 18:27 Freq: Status: Active Protocol: Document 10/28/23 14:30 LRN (Rec: 10/28/23 16:54 LRN [id number]) Manual Assessments Soft Tissue Assessment Soft Tissue Mobility Assessment Increased soft tissue density at R ring finger between PIP and MCP jt. Increased soft tissue tension, possible nodule between R ring/middle finger in distal 1 /2 of hand. Joint Mobility Assessment Joint Mobility Assessment R Ring finger: PIP jt: no mobility palmar, MCP excessive palmar mob, R middle finger: PIP jt excessive dorsal mob, MCP jt excessive dorsal mob. PT-OP-H Neuro Start: 10/21/23 18:27 Freq: Status: Active Protocol: Document 10/28/23 14:30 LRN (Rec: 10/28/23 16:54 LRN [id number]) Sensation Evaluation Gross Sensation Gross Sensation WNL PT-OP-J Posture/Palpation/Skin Start: 10/21/23 18:27 Freq: Status: Active Protocol: Document 10/28/23 14:30 LRN (Rec: 10/28/23 16:54 LRN [id number]) Posture Evaluation Position Sitting Head/C-Spine Posture Forward Head Shoulder Posture (R) Forward,(L) Elevated Arm Posture (L) Internally Rotated,(R) Internally Rotated PT-OP-K Range of Motion Start: 10/21/23 18:27 Freq: Status: Active Protocol: Document 10/28/23 14:30 LRN (Rec: 10/28/23 16:54 LRN [id number]) Wrist Goniometric Range of Motion Wrist Right Flexion Active (degrees) 55 Extension Active (degrees) 45 Left Flexion Active (degrees) 55 Extension Active (degrees) 70 Finger Goniometric Range of Motion Finger Left Third Finger ROM WFL Yes MCP Flexion Active (degrees) 86 PIP Flexion Active (degrees) 80 DIP Flexion Active (70-90 degrees) 60 L Left Fourth MCP Flexion Active (degrees) 88 PIP Flexion Active (degrees) 90 DIP Flexion Active (70-90 degrees) 70 Right Third MCP Flexion Active (degrees) 70 PIP Flexion Active (degrees) 80 DIP Flexion Active (70-90 degrees) 56 L Right Fourth Finger ROM WFL No MCP Flexion Active (degrees) 76 PIP Flexion Active (degrees) 90 DIP Flexion Active (70-90 degrees) 50 L PT-OP-M Strength Start: 10/21/23 18:27 Freq: Status: Active Protocol: Document 10/28/23 14:30 LRN (Rec: 10/28/23 16:54 LRN [id number]) Wrist Strength Wrist Manual Muscle Testing Right Wrist Pronation (degrees) 90 Wrist Supination (degrees) 60 Comments Strengh is WNL Left Wrist Pronation (degrees) 90 Wrist Supination (degrees) 70 Comments Strength is WNL Finger/Thumb Strength Finger Manual Muscle Testing Right Fifth Extension (thumb C8) 1 Trace Adduction 4 Good Abduction (fingers T1) 4 Good Comments Deferred MMT of flexion L hand: Digit 5 is normal strength. Right Fourth Extension (thumb C8) 2 Poor Adduction 4 Good Abduction (fingers T1) 4 Good Comments Deferred testing flexors due to locking history of finger. L hand: Digit 4 is normal strength. Right Third Extension (thumb C8) 2 Poor Adduction 4 Good Abduction (fingers T1) 4 Good Comments Deferred testing flexors due to locking history of finger. L hand: Digit 3 is normal strength. Hand Student Development Coordinator/Pinch Strength Hand Dominance Hand Dominance Right PT-OP-Q Treatments Start: 10/21/23 18:27 Freq: Status: Active Protocol: Document 11/14/23 14:37 LRN (Rec: 11/14/23 15:43 LRN [id number]) Therapeutic Exercises Sitting Exercises Wrist sup stretch Side right Reps/Minutes 3' finger/hand/wrist ext stretch Side right Reps/Minutes 8' Finger extension Sitting Exercise Name Active & AA finger extension Side right Reps/Minutes 14' Finger spreading Sitting Exercise Name Active & Passive Finger AB Side bilateral Reps/Minutes 5-10 SH, 10x 2 Standing Exercises Wrist extension stretch Standing Exercise Name Palm up and palm down Side right Reps/Minutes 2' Manual Therapy Treatment Soft Tissue Mobilization R hand Body Location R middle finger and ring finger flexor tendon. Mobilization Type Cross-Friction Intensity/Depth Moderate Body Position Sitting Self-Care/Home Management Treatment Education Other Education Reviewed modifying of gripping diameter to keep fingers from locking up. Activities Self-Care/Home Management Activities Issued & reviewed HEP: Wrist ext/sup stretch & AROM, finger ext/AB/AD AROM & strengthening. Pt todl he can hold on strengthening until next appt, although verval review and instructions given. PT-OP-T Assessment and Plan Start: 10/21/23 18:27 Freq: Status: Active Protocol: Document 11/14/23 14:37 LRN (Rec: 11/14/23 15:43 LRN [id number]) Physical Therapy Assessment Goals Three Impairment Pt not able to extend R hand digits 3, 4 with forcing straight. Short Term Goal (STG) Pt educated in use of modalities to reduce inflammation of R hand ( contrast bath, crotherapy). 11/04/23: Educated pt in Ice/ Contrast baths for edema management. STG Duration 11/14/23 (11/04/23: MET GOAL) Retirement Goal (LTG) Be able to extend the R ring/ middle finger and be able to open his hand on its own with self massage. 10/31/23: Pt 95% of the time is able to open his had on his own with self massage after locking. 11/04/23: Pt able to open his hand 3-4x/day when fingers locked, via self massaging, w/ o having to force open. LTG Duration 11/28/23 (11/04/23: MET GOAL) Two Impairment Locking of R ring/middle finger at MCP/PIP jts with gripping motion Short Term Goal (STG) Improve R hand finger extension strength to 2/5 ( primarily digits 3-5). 11/14/23: Pt able to perform limited finger ext after STM/ stretch. STG Duration 11/14/23 progressed 11/14/23 [employer] Maker Goal (LTG) Pt will be able to minimize onset of R ring/middle finger locking up with a motion of flexion of fingers, by modifying activities and using relaxation procedures. 10/31/23: Pt able to release R 3rd & 4th digits when locked with self STM. 11/14/23: Pt reporting rarely locking up of R middle finger with flexion activities. Pt is using thick gloves to hold working objects. LTG Duration 11/28/23 progressed 11/14/23 One Impairment Pt lacks appropriates self care HEP [employer] Maker Goal (LTG) Pt will be independent in R wrist (ext/sup), R finger ext strengthening, intrinsics ( palmar flex), finger tip bends. 11/04/23: HEP: Tendon gliding ex (-table top, -DIP/ PIP flex/ext, and AROM intrinsics of table top<>DIP/ PIP flex/ext). : HEP: Wrist ext/sup stretch & AROM, finger ext/AB/ AD AROM & strengthening, but pt may hold on strengthening until ex's reviewed. LTG Duration 11/28/23 progressing 11/14/23 Assessment Summary Assessment Pt is a 73 yo male with initially R hand 3rd digit and worse with 4th digit trigger fingers vs Dupuytren's contracture. Today the pt is reporting no locking of middle finger and variable locking of ring finger with no forceful opening of finger needed. Pt able to show active finger extension mobility of middle and ring finger after stretching and STM of finger flexors tendon and soft tissue restriction at the hand. Physical Therapy Plan Frequency and Duration Frequency of Treatment 2x/Week Duration of treatment (weeks) 4 Plan of Care Start Date 10/28/23 Plan of Care End Date 11/28/23 Next Visit Focus/Plan Next Note Type Treatment Note Next Visit Plan Next: Complete HEP review of finger strengthening ex's ( issue yellow TPutty) & DC. Pt waiting for referral for hand specialist ([facility] or [facility]) for splint to prevent finger flexion. HEP: soft tissue treatments, modalities, and assess for modifications to gripping activities. Discuss information for R hand supports to limit flexion of R ring>middle finger. Educate to modify activity of opening /closing jars by using your left hand to open them and switching to your right to close them. Additionally, there are various jar sheet metal mechanic devices available to reduce the stress on your hand during this task. Modification of the way in which you open doors, (lever-style doorknobs) , kitchen or workshop tools with larger, rounded and/or or contoured handles.
--- NOTE | 2023-11-14 17:33 | PT-OP ANOTE ---
Per phone conversation with Dr. Vasquez's office nurse Sarah, it was requested that the pt have a referral for nighttime hand splint for care of his R hand trigger fingers (3rd & 4th digits). Requested that pt notify PT if he is able to get to [facility] hand speciialist before his next appt at so that he can be discharged for IHPT. Sarah agreeable to start referral process and will talk to patient.
--- NOTE | 2024-06-29 18:26 | PT.OPDS ---
Current Diagnoses Trigger finger, right middle finger (11/14/23) Trigger finger, right ring finger (11/14/23) Palmar fascial fibromatosis [Dupuytren] (11/14/23) Visit Care Team Role Provider Type Kyle Vasquez DO Attending Provider Physician Family Provider Primary Care Provider Referring Provider Specialty: [facility] Practice Address: [address] [place] [address] Email: [email or web address] Visit Number Visit Number 4 Discharge Summary PT-OP-B Current Condition Start: 10/21/23 18:27 Freq: Status: Active Protocol: Document 10/28/23 14:30 LRN (Rec: 10/28/23 16:54 LRN [id number]) Current Condition History of Current Condition Onset Date 6 months ago. Current Complaints R ring and middle fingers lock up. History of Current Condition 6 months ago was removing baseboards and moulding around home (to put in new riaz) and one day was pulling baseboard the 2 R middle and ring finger 'locked up. Now the the ring finger locks up every day, so he forcefully opens it. The middle finger hasn't locked up in a month. Prior Treatments and Tests None. Treatment Goals Patient/Caregiver Goals Pt goal with therapy: Be able to straighten the R ring/middle finger on its own. Not have the R ring/middle finger lock up. HEP Personal Factors Other Personal Factors That May Effect Retired, and is always doing Therapy/Recovery something with your hands ( working on [employer]). Has a new puppy. Pt is R handed. Sarcoidosis, Diabetic history. PT-OP-C Subjective Start: 10/21/23 18:27 Freq: Status: Active Protocol: Document 11/14/23 14:37 LRN (Rec: 11/14/23 15:43 LRN [id number]) OP-PT Subjective Patient Comments Patient Comments States his condition is the same. He states he has an appt with MD in 2 wks to discuss hand and kidneys. Middle finger is not locking anymore. States recently he has noticed some days he can go w/ o fingers locking up and other days they lock up all the time. PT-OP-F Manual Assessment Start: 10/21/23 18:27 Freq: Status: Active Protocol: Document 10/28/23 14:30 LRN (Rec: 10/28/23 16:54 LRN [id number]) Manual Assessments Soft Tissue Assessment Soft Tissue Mobility Assessment Increased soft tissue density at R ring finger between PIP and MCP jt. Increased soft tissue tension, possible nodule between R ring/middle finger in distal 1 /2 of hand. Joint Mobility Assessment Joint Mobility Assessment R Ring finger: PIP jt: no mobility palmar, MCP excessive palmar mob, R middle finger: PIP jt excessive dorsal mob, MCP jt excessive dorsal mob. PT-OP-H Neuro Start: 10/21/23 18:27 Freq: Status: Active Protocol: Document 10/28/23 14:30 LRN (Rec: 10/28/23 16:54 LRN [id number]) Sensation Evaluation Gross Sensation Gross Sensation WNL PT-OP-J Posture/Palpation/Skin Start: 10/21/23 18:27 Freq: Status: Active Protocol: Document 10/28/23 14:30 LRN (Rec: 10/28/23 16:54 LRN [id number]) Posture Evaluation Position Sitting Head/C-Spine Posture Forward Head Shoulder Posture (R) Forward,(L) Elevated Arm Posture (L) Internally Rotated,(R) Internally Rotated PT-OP-K Range of Motion Start: 10/21/23 18:27 Freq: Status: Active Protocol: Document 10/28/23 14:30 LRN (Rec: 10/28/23 16:54 LRN [id number]) Wrist Goniometric Range of Motion Wrist Right Flexion Active (degrees) 55 Extension Active (degrees) 45 Left Flexion Active (degrees) 55 Extension Active (degrees) 70 Finger Goniometric Range of Motion Finger Left Third Finger ROM WFL Yes MCP Flexion Active (degrees) 86 PIP Flexion Active (degrees) 80 DIP Flexion Active (70-90 degrees) 60 L Left Fourth MCP Flexion Active (degrees) 88 PIP Flexion Active (degrees) 90 DIP Flexion Active (70-90 degrees) 70 Right Third MCP Flexion Active (degrees) 70 PIP Flexion Active (degrees) 80 DIP Flexion Active (70-90 degrees) 56 L Right Fourth Finger ROM WFL No MCP Flexion Active (degrees) 76 PIP Flexion Active (degrees) 90 DIP Flexion Active (70-90 degrees) 50 L PT-OP-M Strength Start: 08/20/24 18:27 Freq: Status: Active Protocol: Document 10/28/23 14:30 LRN (Rec: 10/28/23 16:54 LRN [id number]) Wrist Strength Wrist Manual Muscle Testing Right Wrist Pronation (degrees) 90 Wrist Supination (degrees) 60 Comments Strengh is WNL Left Wrist Pronation (degrees) 90 Wrist Supination (degrees) 70 Comments Strength is WNL Finger/Thumb Strength Finger Manual Muscle Testing Right Fifth Extension (thumb C8) 1 Trace Adduction 4 Good Abduction (fingers T1) 4 Good Comments Deferred MMT of flexion L hand: Digit 5 is normal strength. Right Fourth Extension (thumb C8) 2 Poor Adduction 4 Good Abduction (fingers T1) 4 Good Comments Deferred testing flexors due to locking history of finger. L hand: Digit 4 is normal strength. Right Third Extension (thumb C8) 2 Poor Adduction 4 Good Abduction (fingers T1) 4 Good Comments Deferred testing flexors due to locking history of finger. L hand: Digit 3 is normal strength. Hand Floorworker/Pinch Strength Hand Dominance Hand Dominance Right PT-OP-T Assessment and Plan Start: 10/21/23 18:27 Freq: Status: Active Protocol: Document 06/29/24 18:18 LRN (Rec: 06/29/24 20:26 LRN Laptop) Physical Therapy Assessment Goals Three Impairment Pt not able to extend R hand digits 3, 4 with forcing straight. Short Term Goal (STG) Pt educated in use of modalities to reduce inflammation of R hand ( contrast bath, crotherapy). 11/04/23: Educated pt in Ice/ Contrast baths for edema management. STG Duration 11/14/23 (11/04/23: MET GOAL) Intermediate Goal (LTG) Be able to extend the R ring/ middle finger and be able to open his hand on its own with self massage. 10/31/23: Pt 95% of the time is able to open his had on his own with self massage after locking. 11/04/23: Pt able to open his hand 3-4x/day when fingers locked, via self massaging, w/ o having to force open. LTG Duration 11/28/23 (11/04/23: MET GOAL) Two Impairment Locking of R ring/middle finger at MCP/PIP jts with gripping motion Short Term Goal (STG) Improve R hand finger extension strength to 2/5 ( primarily digits 3-5). 11/14/23: Pt able to perform limited finger ext after STM/ stretch. STG Duration 11/14/23 progressed 11/14/23 Motor Coach Chauffeur Goal (LTG) Pt will be able to minimize onset of R ring/middle finger locking up with a motion of flexion of fingers, by modifying activities and using relaxation procedures. 10/31/23: Pt able to release R 3rd & 4th digits when locked with self STM. 11/14/23: Pt reporting rarely locking up of R middle finger with flexion activities. Pt is using thick gloves to hold working objects. LTG Duration 11/28/23 progressed 11/14/23 One Impairment Pt lacks appropriates self care HEP Motor Coach Chauffeur Goal (LTG) Pt will be independent in R wrist (ext/sup), R finger ext strengthening, intrinsics ( palmar flex), finger tip bends. 11/04/23: HEP: Tendon gliding ex (-table top, -DIP/ PIP flex/ext, and AROM intrinsics of table top<>DIP/ PIP flex/ext). : HEP: Wrist ext/sup stretch & AROM, finger ext/AB/ AD AROM & strengthening, but pt may hold on strengthening until ex's reviewed. LTG Duration 11/28/23 progressing 11/14/23 Assessment Summary Assessment Pt is a 73 yo male who was being seen for physical therapy rehabilitation for R hand 3rd digit and worse with 4th digit trigger finger vs Dupuytren's contracture. Pt was initially seen for his evaluation on 10/28/23 and was seen for 3 treatment visits, with his last on . The was not able to return for further therapy before his plan of care end date and failed to seek more therapy. The referring physician's office was notified of referral of the pt to [facility] hand speciialist for possible nighttime splint for his R trigger fingers, and the process was initiated by MD office. The pt is being discharged from physical therapy for lack of attendance . Most goals were not met. Physical Therapy Plan Discharge Physical Therapy Discharge Reasons No Longer Attending PT Discharge Comments Thank you for your referral.
== END 2024-06-30 13:28 | disposition home or self-care (01) ==
LOC: PHYS 14:30
PROVIDERS: Family Provider Family Medicine; PCP Family Medicine; Referring Provider Family Medicine; Visit Provider Family Medicine
DX: M72.0 Palmar fascial fibromatosis [Dupuytren] (principal); M65.331 Trigger finger, right middle finger; M65.341 Trigger finger, right ring finger
CPT/HCPCS: 97110; 97140; 97162; 97535

== ENCOUNTER → 2023-11-26 14:24 | Outpatient (CLI) | payer OTHER, MEDICARE, SELFPAY ==
--- NOTE | 2023-11-26 14:25 | DI.RAD.S_ITS ---
PROCEDURE: XR CHEST 2V INDICATIONS: SOB/cough/elevated BNP since covid 10/2023 TECHNIQUE: 2 views of the chest were acquired. COMPARISON: [facility], CR, XR CHEST 1V, 10/02/2023, 18:07. [facility], CR, XR CHEST 2V, 05/27/2022, 14:48. FINDINGS: Surgical changes and devices: None. Lungs and pleura: Reticular markings again seen at the upper lung zones. No acute consolidation. No pleural effusion or pneumothorax. Mediastinum: Mediastinal contours are normal. Heart size is normal. Bones and chest wall: No suspicious bony abnormalities. Soft tissues appear unremarkable. IMPRESSION: Bilateral upper lobe reticulations again seen likely related to scarring. However, a superimposed atypical or viral pneumonia or mild edema is not entirely excluded. Approved by: Ari Helms M.D. on 11/26/2023 at 20:24
[2023-11-26 15:07] LABS: Add Manual Diff / Slide Review NO; Basophils Absolute Auto 0 /uL (0-100); Basophils Percent Auto 0.8 % (0-2); Eosinophils Absolute Auto 300 /uL (0-450); Eosinophils Percent Auto 4.9 % (2-4); Hematocrit 33.7 % (41-53); Hemoglobin 11.8 g/dL (13.5-17.5); Lymphocytes Absolute Auto 600 /uL (1100-4500); Lymphocytes Percent Auto 10.2 % (25-40); Mean Corpuscular HGB Conc 34.9 % (30-36); Mean Corpuscular Hemoglobin 30.7 PG (26-34); Monocytes Absolute Auto 400 /uL (0-900); Monocytes Percent Auto 6.7 % (3-14); Neutrophils Absolute Auto 4400 /uL (1500-7000); Neutrophils Percent Auto 77.4 % (50-75); Platelet Count 119 X10^3/uL (150-400); Red Blood Cell Count 3.83 X10^6/uL (4.5-5.9); Red Cell Distribution Width 13.6 % (11.6-14.8); White Blood Cell Count 5.7 X10^3/uL (4.5-11.0)
[2023-11-26 15:13] LABS: D Dimer 641 ng/ml (<500)
[2023-11-26 15:48] LABS: Alanine Aminotransferase 19 IU/L (<50); Albumin 3.7 g/dL (3.5-5.0); Alkaline Phosphatase 88 U/L (38-126); Aspartate Aminotransferase 26 IU/L (17-59); BUN Creatinine Ratio 13.7 (6-22); Bilirubin Total 0.7 mg/dL (0.2-1.3); Blood Urea Nitrogen 35 mg/dL (9-20); Calcium 9.1 mg/dL (8.4-10.2); Carbon Dioxide 20 mmol/L (22-32); Chloride 109 mmol/L (98-107); Estimated Glomerular Filt Rate 26 mL/min (>60); Globulin 3.8 g/dL (1.7-4.1); Glucose 106 mg/dL (80-110); HEMOLYSIS < 15 (0-50); Potassium 4.8 mmol/L (3.4-5.1); Sodium 135 mmol/L (137-145); Total Protein 7.5 g/dL (6.3-8.2)
[2023-11-26 16:31] LABS: Hemoglobin A1C% w Est Avg Glu 5.3 % (4.0-6.0)
[2023-11-26 16:43] LABS: NT-proBNP (BNP-Adult 18+) 7230 pg/mL (<125)
[2023-11-26 16:50] LABS: HEMOLYSIS < 15 (0-50); Iron 60 ug/dL (49-181)
[2023-11-26 17:05] LABS: Percent Iron Saturation 20 % (20-50); Total Iron Binding Capacity 306 ug/dL (261-462); Transferrin 230 mg/dL (206-381)
[2023-11-26 17:09] LABS: Ferritin 127 ng/mL (18-464)
[2023-11-26 19:51] LABS: Creatinine Urine Random 102.31 mg/dL
[2023-11-26 20:36] LABS: Microalbumin Urine Random > 114.0 mg/dL (0-1.6)
== END ==
PROVIDERS: Family Provider Family Medicine; PCP Family Medicine; Referring Provider Physician Assistant; Visit Provider Physician Assistant
DX: N18.9 Chronic kidney disease, unspecified (principal); R79.89 Other specified abnormal findings of blood chemistry; R06.02 Shortness of breath; R05.9 Cough, unspecified; N40.0 Benign prostatic hyperplasia without lower urinary tract symptoms; E11.65 Type 2 diabetes mellitus with hyperglycemia; I10 Essential (primary) hypertension
CPT/HCPCS: 71046; 80053; 82043; 82274; 82570; 82728; 83036; 83540; 83550; 83880; 85025; 85379

== ENCOUNTER → 2023-12-11 14:55 | Outpatient (CLI) | payer OTHER, SELFPAY ==
[2023-12-11 16:41] LABS: NT-proBNP (BNP-Adult 18+) 5640 pg/mL (<125)
[2023-12-12 10:25] LABS: BUN Creatinine Ratio 15.2 (6-22); Blood Urea Nitrogen 39 mg/dL (9-20); Calcium 9.3 mg/dL (8.4-10.2); Carbon Dioxide 22 mmol/L (22-32); Chloride 105 mmol/L (98-107); Estimated Glomerular Filt Rate 26 mL/min (>60); Glucose 116 mg/dL (80-110); HEMOLYSIS < 15 (0-50); Sodium 134 mmol/L (137-145)
[2023-12-12 10:30] LABS: Potassium 5.4 mmol/L (3.4-5.1)
== END ==
LOC: LAB 14:56
PROVIDERS: Family Provider Family Medicine; PCP Family Medicine; Referring Provider Physician Assistant; Visit Provider Physician Assistant
DX: R79.89 Other specified abnormal findings of blood chemistry (principal)
CPT/HCPCS: 36415; 80048; 83880

== ENCOUNTER → 2023-12-12 13:31 | Outpatient (CLI) | payer OTHER, SELFPAY ==
[2023-12-12 17:01] LABS: BUN Creatinine Ratio 14.7 (6-22); Blood Urea Nitrogen 38 mg/dL (9-20); Calcium 9.3 mg/dL (8.4-10.2); Carbon Dioxide 24 mmol/L (22-32); Chloride 106 mmol/L (98-107); Estimated Glomerular Filt Rate 26 mL/min (>60); Glucose 127 mg/dL (80-110); HEMOLYSIS < 15 (0-50); Sodium 138 mmol/L (137-145)
[2023-12-12 17:05] LABS: Potassium 5.5 mmol/L (3.4-5.1)
== END ==
PROVIDERS: Family Provider Family Medicine; PCP Family Medicine; Referring Provider Physician Assistant; Visit Provider Physician Assistant
DX: R79.89 Other specified abnormal findings of blood chemistry (principal)
CPT/HCPCS: 36415; 80048

== ENCOUNTER 2023-12-13 11:35 | Emergency (ER) | payer OTHER, SELFPAY ==
[2023-12-13] VITALS (13 sets, daily range): BP systolic 128–163; BP diastolic 60–71; PULSE 61–78; RESP 12–22; TEMP 36.5; O2SAT 97–99; BMI 33.4
--- NOTE | 2023-12-13 11:42 | DI.RAD.S_ITS ---
PROCEDURE: XR CHEST 1V INDICATIONS: chest pain TECHNIQUE: One view of the chest was acquired. COMPARISON: [facility], CR, XR CHEST 2V, 05/27/2022, 14:48. [facility], CR, XR CHEST 1V, 10/02/2023, 18:07. [facility], CR, XR CHEST 2V, 11/26/2023, 14:41. FINDINGS: Surgical changes and devices: None. Lungs and pleura: An incomplete inspiratory result is noted, causing a crowded appearance to the lung markings. No focal infiltrates are seen. No pneumothorax or significant pleural effusions are seen. Mediastinum: Mediastinal contours appear normal. Heart size is normal. Bones and chest wall: No suspicious bony lesions. Age-appropriate bony degenerative changes are seen. Overlying soft tissues appear unremarkable. IMPRESSION: Low lung volumes, without an acute abnormality seen by plain film. Dictated by: Anant Christina M.D. on 12/13/2023 at 11:50 Approved by: Anant Christina M.D. on 12/13/2023 at 11:51
[2023-12-13] MEDS: ASPIRIN 81 MG CHEW TAB 324 MG PO (12:03)
--- NOTE | 2023-12-13 12:06 | EKG_ITS ---
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
[2023-12-13 12:22] LABS: Add Manual Diff / Slide Review NO; Basophils Absolute Auto 0 /uL (0-100); Basophils Percent Auto 0.7 % (0-2); Eosinophils Absolute Auto 600 /uL (0-450); Eosinophils Percent Auto 11.2 % (2-4); Hematocrit 36.3 % (41-53); Hemoglobin 12.4 g/dL (13.5-17.5); Lymphocytes Absolute Auto 700 /uL (1100-4500); Lymphocytes Percent Auto 12.3 % (25-40); Mean Corpuscular Hemoglobin 30.2 PG (26-34); Mean Corpuscular Volume 88.8 fL (80-100); Monocytes Absolute Auto 300 /uL (0-900); Monocytes Percent Auto 6.5 % (3-14); Neutrophils Absolute Auto 3700 /uL (1500-7000); Neutrophils Percent Auto 69.3 % (50-75); Platelet Count 113 X10^3/uL (150-400); Red Blood Cell Count 4.09 X10^6/uL (4.5-5.9); Red Cell Distribution Width 13.2 % (11.6-14.8); White Blood Cell Count 5.4 X10^3/uL (4.5-11.0)
[2023-12-13 12:24] LABS: INR 1.2 (0.9-1.3); Prothrombin Time 13.5 SECONDS (9.4-12.5)
[2023-12-13 12:26] LABS: PTT Partial Thromboplastin Tim 36 SECONDS (25.1-36.5)
[2023-12-13 12:28] LABS: Alanine Aminotransferase 18 IU/L (<50); Albumin 3.9 g/dL (3.5-5.0); Albumin Globulin Ratio 1.1 (1.0-2.8); Alkaline Phosphatase 78 U/L (38-126); Aspartate Aminotransferase 28 IU/L (17-59); BUN Creatinine Ratio 16.1 (6-22); Bilirubin Total 0.7 mg/dL (0.2-1.3); Blood Urea Nitrogen 42 mg/dL (9-20); Calcium 9.2 mg/dL (8.4-10.2); Carbon Dioxide 24 mmol/L (22-32); Chloride 105 mmol/L (98-107); Creatine Kinase 70 U/L (55-170); Estimated Glomerular Filt Rate 25 mL/min (>60); Globulin 3.5 g/dL (1.7-4.1); Glucose 154 mg/dL (80-110); HEMOLYSIS < 15 (0-50); Lipase 179 U/L (23-300); Magnesium 1.6 mg/dL (1.6-2.3); Sodium 135 mmol/L (137-145); Total Protein 7.4 g/dL (6.3-8.2)
[2023-12-13 12:40] LABS: NT-proBNP (BNP-Adult 18+) 5990 pg/mL (<125); Troponin I 0.013 ng/mL (0.01-0.034)
--- NOTE | 2023-12-13 14:30 | ED.CHESTPAIN ---
HPI - Chest Pain General Chief Complaint: Chest Pain Stated Complaint: Chest pressure Time Seen by Provider: 12/13/23 14:29 Source: patient Mode of arrival: Family Vehicle Limitations: no limitations History of Present Illness HPI narrative: 73-year-old male here primarily to recheck his potassium, has history of congestive heart failure, recent cough respiratory illness felt to be pneumonia, just completed 2 week course of doxycycline today, renal insufficiency noted, elevated potassium levels recent blood draws while taking lisinopril, had addition of Lasix medication recently, most recent potassium was 5.7 and then was 5.5, was concerned about what his potassium level was. Here for redraw. Also does describe recent shortness of breath and chest discomfort, had recent respiratory illness, but those symptoms have resolved with treatment of the pneumonia. Related Data Previous Rx's Medication Instructions Recorded Disabled Parking Permit ea ##1 07/31/16 flash glucose sensor (FreeStyle #1 ea 07/21/18 Zofia 10 Day Sensor kit) empagliflozin 25 mg tablet 25 mg PO DAILY #90 tabs 05/27/22 (Jardiance) metformin 500 mg tablet 500 mg PO DAILY #90 tabs 11/20/22 amlodipine 5 mg tablet 5 mg PO BID #180 tabs 05/15/23 lisinopril 20 mg tablet 20 mg PO BID #180 tabs 05/15/23 tamsulosin 0.4 mg capsule (Flomax) 0.4 mg PO BID #180 caps 06/18/23 oxycodone 5 mg tablet 2.5 mg (1/2 x 5 mg) PO BID PRN 11/22/23 pain #15 tabs benzonatate 200 mg capsule 200 mg PO TID #30 caps 11/26/23 furosemide 20 mg tablet (Lasix) 20 mg PO DAILY #30 tabs 11/26/23 guaifenesin 1,200 mg tablet, 1,200 mg PO BID #30 tabs 11/26/23 extended release 12 hr doxycycline hyclate 100 mg capsule 100 mg PO BID #14 caps 12/05/23 Allergies Allergy/AdvReac Type Severity Reaction Status Date / Time Sulfa (Sulfonamide Allergy Severe convulsions Verified 12/13/23 11:46 Antibiotics) [SULFA (SULFONAMIDE ANTIBIOTICS)] penicillin G [PENICILLIN G] Allergy Mild HIVES Verified 12/13/23 11:46 phenazopyridine Allergy Mild RASH Verified 12/13/23 11:46 [PHENAZOPYRIDINE] pseudoephedrine AdvReac Severe urinary Verified 12/13/23 11:46 [PSEUDOEPHEDRINE] retention erythromycin base AdvReac Mild VOMITING Verified 12/13/23 11:46 [ERYTHROMYCIN BASE] Review of Systems Review of Systems Narrative: see HPI Patient History Medical History (Updated 12/13/23 @ 16:23 by Luis Vasques MD) Dupuytren contracture of right hand Sleep apnea Adhesive capsulitis Left shoulder strain Chronic kidney disease Plaque psoriasis Well adult exam BPH (benign prostatic hyperplasia) Other chronic pain (09/20/16) Thrombocytopenia (12/20/13) Uncontrolled type 2 diabetes mellitus (12/20/13) Chronic interstitial cystitis with hematuria Essential hypertension Class 1 obesity Sarcoidosis Family History Brother CAD (coronary artery disease) H/O heart bypass surgery Social History Smoking Status: Never smoker Smoking Status: Never smoker alcohol intake frequency: 0-2 drinks per day Substance Use Type: does not use Exam Narrative Exam Narrative: GENERAL: Well-developed patient, in mild distress. HEAD: Atraumatic. Normocephalic. EYES: Pupils equal round and reactive. Extraocular motions intact. No scleral icterus. No injection or drainage. ENT: Nose without bleeding, purulent drainage. Throat without erythema, tonsillar hypertrophy or exudate. Airway patent. NECK: Trachea midline. Non tender CARDIOVASCULAR: Regular rate and rhythm without murmurs, gallops, or rubs. RESPIRATORY: Clear to auscultation. Breath sounds equal bilaterally. No wheezes, rales, or rhonchi. GASTROINTESTINAL: Abdomen soft, non-tender, nondistended. EXTREMITIES: No edema or joint tenderness. BACK: Nontender without deformity or crepitance. No flank tenderness. NEURO: AOx3. Motor functions grossly nonfocal SKIN: No rash or erythema of visible areas Initial Vital Signs Initial Vital Signs: Vital Signs Temperature 97.7 F 12/13/23 11:42 Pulse Rate 78 12/13/23 11:42 Respiratory Rate 18 12/13/23 11:42 Blood Pressure 143/68 H 12/13/23 11:42 Pulse Oximetry 99 12/13/23 11:42 Oxygen Delivery Method Room Air 12/13/23 11:42 Course Orders Ordered: Discontinued Medications Aspirin (Aspirin 81 Mg Chew Tab) 324 mg PO NOW ONE Stop: 12/13/23 11:43 Last Admin: 12/13/23 12:03 Dose: 324 mg Documented By: FARIHA Vital Signs Vital signs: Vital Signs - 8 hr 12/13/23 11:42 12/13/23 11:57 12/13/23 11:57 Temperature 97.7 F Pulse Rate 78 76 Respiratory Rate 18 21 Blood Pressure 143/68 H 161/71 H Pulse Oximetry 99 99 Oxygen Delivery Method Room Air Room Air 12/13/23 12:00 12/13/23 12:00 12/13/23 12:30 Temperature Pulse Rate 74 70 Respiratory Rate 13 17 Blood Pressure 137/64 Pulse Oximetry 99 99 Oxygen Delivery Method Room Air 12/13/23 12:30 12/13/23 13:00 12/13/23 13:00 Temperature Pulse Rate 65 Respiratory Rate 15 Blood Pressure 147/63 H 128/60 Pulse Oximetry 97 Oxygen Delivery Method Room Air 12/13/23 13:30 12/13/23 13:30 12/13/23 14:00 Temperature Pulse Rate 63 65 Respiratory Rate 12 13 Blood Pressure 143/66 H Pulse Oximetry 99 99 Oxygen Delivery Method Room Air Room Air 12/13/23 14:00 12/13/23 14:30 12/13/23 14:30 Temperature Pulse Rate 63 Respiratory Rate 17 Blood Pressure 142/66 H 147/67 H Pulse Oximetry 98 Oxygen Delivery Method 12/13/23 15:00 12/13/23 15:30 12/13/23 15:30 Temperature Pulse Rate 62 61 Respiratory Rate 16 13 Blood Pressure 138/63 Pulse Oximetry 99 97 Oxygen Delivery Method MDM - Chest Pain Lab Data Attestation: I reviewed the patient's lab results. Lab results narrative: White blood cell count 5400, hemoglobin 12.4, platelets adequate, potassium 5.0 noted, serum CO2 24. Creatinine elevated 2.6 but has been elevated similarly recent blood draw comparison studies. Glucose 154. Initial troponin negative x2 draws. Lipase negative. 12/13/23 11:55 12/13/23 11:55 Labs: Lab Results 12/13/23 12/13/23 Range/Units 11:55 13:55 WBC 5.4 (4.5-11.0) X10^3/uL RBC 4.09 L (4.5-5.9) X10^6/uL Hgb 12.4 L (13.5-17.5) g/dL Hct 36.3 L (41-53) % MCV 88.8 (80-100) fL MCH 30.2 (26-34) PG MCHC 34.0 (30-36) % RDW 13.2 (11.6-14.8) % Plt Count 113 L (150-400) X10^3/uL Neut % (Auto) 69.3 (50-75) % Lymph % (Auto) 12.3 L (25-40) % [facility] [place] % (Auto) 6.5 (3-14) % Eos % (Auto) 11.2 H (2-4) % Baso % (Auto) 0.7 (0-2) % Neut # (Auto) 3700 (8339-4535) /uL Lymph # (Auto) 700 L (8408-3687) /uL [facility] [place] # (Auto) 300 (0-900) /uL Eos # (Auto) 600 H (0-450) /uL Baso # (Auto) 0 (0-100) /uL PT 13.5 H (9.4-12.5) SECONDS INR 1.2 (0.9-1.3) APTT 36 (25.1-36.5) SECONDS Sodium 135 L (137-145) mmol/L Potassium 5.0 (3.4-5.1) mmol/L Chloride 105 (98-107) mmol/L Carbon Dioxide 24 (22-32) mmol/L BUN 42 H (9-20) mg/dL Creatinine 2.61 H (0.66-1.25) mg/dL Estimated GFR 25 L (>60) mL/min BUN/Creatinine Ratio 16.1 (6-22) Glucose 154 H (80-110) mg/dL Calcium 9.2 (8.4-10.2) mg/dL Magnesium 1.6 (1.6-2.3) mg/dL Total Bilirubin 0.7 (0.2-1.3) mg/dL AST 28 (17-59) IU/L ALT 18 (<50) IU/L Alkaline Phosphatase 78 (38-126) U/L Total Creatine Kinase 70 (55-170) U/L Troponin I 0.013 0.013 (0.01-0.034) ng/mL NT-Pro-B Natriuret Pep 5990 H (<125) pg/mL Total Protein 7.4 (6.3-8.2) g/dL Albumin 3.9 (3.5-5.0) g/dL Globulin 3.5 (1.7-4.1) g/dL Albumin/Globulin Ratio 1.1 (1.0-2.8) Lipase 179 (23-300) U/L Imaging Data Chest x-ray: Radiologist's Impression: [address] [address] XRay Report Signed Patient: Yannick Tran MR#: [id number] : 1950 Acct:[id number] Age/Sex: 73 / M Date of Service: 12/13/23 Loc: ED Accession Number: [id number] Procedure: XR chest 1V Ordering Provider: Luis Vasques MD PROCEDURE: XR CHEST 1V INDICATIONS: chest pain TECHNIQUE: One view of the chest was acquired. COMPARISON: [facility], CR, XR CHEST 2V, 05/27/2022, 14:48. [facility], CR, XR CHEST 1V, 10/02/2023, 18:07. [facility], CR, XR CHEST 2V, 11/26/2023, 14:41. FINDINGS: Surgical changes and devices: None. Lungs and pleura: An incomplete inspiratory result is noted, causing a crowded appearance to the lung markings. No focal infiltrates are seen. No pneumothorax or significant pleural effusions are seen. Mediastinum: Mediastinal contours appear normal. Heart size is normal. Bones and chest wall: No suspicious bony lesions. Age-appropriate bony degenerative changes are seen. Overlying soft tissues appear unremarkable. IMPRESSION: Low lung volumes, without an acute abnormality seen by plain film. Dictated by: Anant Christina M.D. on 12/13/2023 at 11:50 Approved by: Anant Christina M.D. on 12/13/2023 at 11:51 ECG Data Attestation: I personally reviewed and interpreted this ECG as follows: Interpretation: Normal sinus rhythm with rate of 75, incomplete left bundle-branch block. MD 174, QRS 102, QTC 417. MDM Narrative Medical decision making narrative: 73-year-old male with nursing triage complaint of chest pain, however for me he says that he would chest discomfort when he had diagnosis of pneumonia, just completed course of oral doxycycline, though symptoms had gone away, was more concerned about his potassium level that reportedly was elevated, was told to get his blood redrawn. Reports potassium levels 5.5 to 5.7 range, taking lisinopril chronic medication, with recent addition of Lasix diuretic. Screening EKG without obvious ischemic changes. Troponin negative. Other labs pending. Creatinine 2.6 similar range values recent blood draws. BNP 5000 noted, similar past elevations. Potassium 5.0 today, lower than reported recent elevated levels, improved on recent outpatient Lasix addition. Repeat troponin negative. For now would advise patient to keep taking the Lisinopril, and Lasix at current doses. Repeat troponin negative. Chest discomfort and shortness of breath symptoms seem largely dissipated with treatment of his CHF and with his recent abx course treatment of pneumonia. Doubt ACS at this time, doubt decompensated CHF at this time. Follow up with PCP advised, discharged home with family Discharge Plan Departure Patient Disposition: Home Clinical Impression: Hyperkalemia, Chronic renal insufficiency, History of heart failure, History of recent pneumonia Activity Restrictions/Additional Instructions: Nursing triage note of chest discomfort, however you seemed to be here mostly to have your potassium rechecked, having been told your potassium levels are elevated 5.5 to 5.7 range. You are taking lisinopril chronic medication, with recent addition of Lasix water pill. Labs today show potassium 5.0 improved. Your kidney function was not normal with creatinine 2.6 today that is elevated, but similar range on recent draws. This likely represents chronic renal insufficiency. EKG not suggestive of heart attack at this time, serial blood tests negative for heart attack at this time. Chest x-ray read today as negative, no description of any pneumonia changes, nor fluid overload decompensated heart failure description, per per radiology report. You seemed to have have felt better with recent Lasix addition to your lisinopril and other chronic medication regimen, having just completed a course of antibiotic for reported pneumonia, excellent room-air saturation, stable renal insufficiency like labs, with improved to has seem level. Continue your chronic medications the same for now. Follow up with your regular doctor as planned. Follow up for your scheduled echocardiogram as planned. Return earlier to this/nearest emergency department for any change worsening symptoms or any concerns prior Prescriptions: No Action Disabled Parking Permit Qty: 1 0RF amlodipine 5 mg tablet 5 mg PO BID Qty: 180 3RF Hold Instructions: try chged dose lisinopril 20 mg tablet 20 mg PO BID Qty: 180 3RF oxycodone 5 mg tablet 2.5 mg PO BID PRN (Reason: pain) Qty: 15 0RF doxycycline hyclate 100 mg capsule 100 mg PO BID Qty: 14 0RF (DME) FreeStyle Zofia 10 Day Sensor kit See Dose Instructions .ROUTE .MEDSUPPLY Qty: 1 0RF Dose Instruction: As directed Rx Instructions: As directed Jardiance 25 mg tablet 25 mg PO DAILY Qty: 90 3RF Rx Instructions: Take 1/2 tablet for 6 days. After 6 days take 1 tablet. metformin 500 mg tablet 500 mg PO DAILY Qty: 90 3RF tamsulosin [Flomax] 0.4 mg capsule 0.4 mg PO BID Qty: 180 3RF furosemide [Lasix] 20 mg tablet 20 mg PO DAILY Qty: 30 0RF benzonatate 200 mg capsule 200 mg PO TID Qty: 30 0RF guaifenesin 1,200 mg tablet extended release 12hr 1,200 mg PO BID Qty: 30 0RF Referrals: Kyle Vasquez, [Primary Care Provider] - Stand Alone Forms: Patient Portal/API
[2023-12-13 14:31] LABS: Troponin I 0.013 ng/mL (0.01-0.034)
== END 2023-12-13 16:33 | disposition home or self-care (01) ==
PROVIDERS: Emergency Provider Emergency Medicine; Family Provider Family Medicine; PCP Family Medicine
DX: E87.6 Hypokalemia (principal); R07.9 Chest pain, unspecified; I45.10 Unspecified right bundle-branch block; I50.9 Heart failure, unspecified; N18.9 Chronic kidney disease, unspecified; Z79.899 Other long term (current) drug therapy; Z87.01 Personal history of pneumonia (recurrent)
CPT/HCPCS: 36415; 71045; 80053; 82550; 83690; 83735; 83880; 84484; 85025; 85610; 85730; 93005; 93010; 99284

== ENCOUNTER → 2023-12-25 13:35 | Outpatient (CLI) | payer OTHER, SELFPAY ==
--- NOTE | 2023-12-25 14:00 | DI.ECHO.S_ITS ---
[place] [facility]---------+ [facility] : : [address] : : [place] : : [id number] : : Phone: [phone] Echocardiogram Report + + :Name: BERNICE CANAS Study Date: 12/25/2023 Height: 68.5 in: :[facility] ReadingLocation: Weight: 215 lb : : Gender: Male BSA: 2.1 m2 : :: 1950 Age: 73 yrs BP: 130/68 mmHg: :Reason For Study: SHORTNESS OF BREATH, ELEVATED BNP : :Ordering Physician: MARVIN, : :SILVIA Performed By: Lucinda Vázquez : :Referring: DAKSHA CHAVEZ : + + Interpretation Summary The left ventricle is normal in size and wall thickness. The ejection fraction is estimated to be 55-60%. Cannot rule out hypokinesis along the mid to distal anteroseptal, including the apical septum. Diastolic parameters suggest a relaxation abnormality of the left ventricle, consistent with probable normal filling pressures. The right ventricle is normal in size and function. Pulmonary artery pressures cannot be estimated because of the lack of a measurable TR jet velocity. Procedure: A two-dimensional transthoracic echocardiogram with color flow and Doppler was performed. The study quality was technically adequate. Comparison is made with the echocardiogram of 01/05/2014. The patient was in sinus rhythm with heart rates between 63-68 bpm during the exam. Left Ventricle: The left ventricle is normal in size and wall thickness. The ejection fraction is estimated to be 55-60%. Cannot rule out hypokinesis along the mid to distal anteroseptal, including the apical septum. Diastolic parameters suggest a relaxation abnormality of the left ventricle, consistent with probable normal filling pressures. Right Ventricle: The right ventricle is normal in size and function. Atria: The left atrial size is normal. Right atrial size is normal. There is no Doppler evidence for an interatrial shunt. Mitral Valve: The mitral valve is normal in structure and function. There is mild mitral regurgitation. Aortic Valve: The aortic valve is trileaflet. The aortic valve opens well. There is no aortic valve stenosis. No aortic regurgitation is present. Tricuspid Valve: The tricuspid valve is normal in structure and function. No tricuspid regurgitation. Pulmonary artery pressures cannot be estimated because of the lack of a measurable TR jet velocity. Pulmonic Valve: The pulmonic valve leaflets are thin and pliable; valve motion is normal. There is no pulmonic valvular regurgitation. Great Vessels: The aortic root is normal size. The dimensions of the ascending aorta are normal. The inferior vena cava was not visualized. Pericardium/ Pleura There is no pericardial effusion. There is no pleural effusion. MMode/2D Measurements & Calculations LVIDd: 5.9 cm LVOT diam: 2.2 cm LVIDs: 4.0 cm Ao root diam: 3.6 cm FS: 31.1 % asc Aorta Diam: 3.2 cm EPSS: 1.2 cm Ao Arch Diam (Prox Trans): 3.3 cm IVSd: 0.91 cm LVPWd: 0.88 cm LV jean. diameter/BSA (cm/m^2): 2.8 LV sys. diameter/BSA (cm/m^2): 1.9 LA A2 area: 20.8 cm2 RA long axis: 5.0 cm LA A4 area: 17.1 cm2 RA area: 13.3 cm2 LA length (vol): 5.0 cm RA vol: 30.2 ml LA vol: 60.3 ml RA : 14.3 ml/m2 LA vol index: 28.4 ml/m2 RVD1 (basal): 3.8 cm TAPSE: 2.2 cm Doppler Measurements & Calculations Ao V2 max: 146.0 cm/sec LVOT Max Enrique: 84.7 cm/sec Ao V2 mean: 100.7 cm/sec LV V1 max P.9 mmHg Ao max P.5 mmHg LV V1 VTI: 21.2 cm Ao mean P.5 mmHg CORKY(I,D): 2.6 cm2 Ao V2 VTI: 31.0 cm CORKY(V,D): 2.2 cm2 sev ratio: 0.68 CORKY indexed to BSA (cm^2/m^2): 1.2 MV E max enrique: 72.6 cm/sec PA V2 max: 111.7 cm/sec MV A max enrique: 100.6 cm/sec PA V2 mean: 77.1 cm/sec MV E/A: 0.72 PA mean P.7 mmHg Med Peak E' Enrique: 7.5 cm/sec PA pr(Accel): 34.5 mmHg E/E' med: 9.6 Lat Peak E' Enrique: 8.8 cm/sec E/E' lat: 8.3 E/e' average: 9.0 MV dec time: 0.23 sec SV(LVOT): 81.6 ml Reading Physician:03:05 PM
== END ==
LOC: ECHO 13:35
PROVIDERS: Family Provider Family Medicine; PCP Family Medicine; Referring Provider Physician Assistant; Visit Provider Physician Assistant
DX: I34.0 Nonrheumatic mitral (valve) insufficiency (principal); N18.9 Chronic kidney disease, unspecified; R79.89 Other specified abnormal findings of blood chemistry; R06.02 Shortness of breath
CPT/HCPCS: 93306

== ENCOUNTER → 2024-01-02 16:55 | Outpatient (CLI) | payer OTHER, MEDICARE, SELFPAY ==
[2024-01-02 18:11] LABS: Alanine Aminotransferase 19 IU/L (<50); Albumin 3.9 g/dL (3.5-5.0); Albumin Globulin Ratio 1.1 (1.0-2.8); Alkaline Phosphatase 73 U/L (38-126); Aspartate Aminotransferase 28 IU/L (17-59); BUN Creatinine Ratio 15.4 (6-22); Bilirubin Total 0.6 mg/dL (0.2-1.3); Blood Urea Nitrogen 38 mg/dL (9-20); Calcium 9.4 mg/dL (8.4-10.2); Carbon Dioxide 22 mmol/L (22-32); Chloride 105 mmol/L (98-107); Estimated Glomerular Filt Rate 27 mL/min (>60); Globulin 3.4 g/dL (1.7-4.1); Glucose 95 mg/dL (80-110); HEMOLYSIS < 15 (0-50); Sodium 134 mmol/L (137-145); Total Protein 7.3 g/dL (6.3-8.2)
[2024-01-02 18:13] LABS: Hemoglobin A1C% w Est Avg Glu 5.5 % (4.0-6.0)
[2024-01-02 18:37] LABS: Potassium 5.4 mmol/L (3.4-5.1)
[2024-01-02 18:51] LABS: Creatinine Urine Random 86.04 mg/dL
[2024-01-02 20:05] LABS: Microalbumin Urine Random > 114.0 mg/dL (0-1.6)
== END ==
PROVIDERS: Family Provider Family Medicine; PCP Family Medicine; Referring Provider Family Medicine; Visit Provider Family Medicine
DX: E11.40 Type 2 diabetes mellitus with diabetic neuropathy, unspecified (principal); N18.31 Chronic kidney disease, stage 3a; E11.22 Type 2 diabetes mellitus with diabetic chronic kidney disease; R79.9 Abnormal finding of blood chemistry, unspecified; U07.1 COVID-19; D61.818 Other pancytopenia; I12.9 Hypertensive chronic kidney disease with stage 1 through stage 4 chronic kidney disease, or unspecified chronic kidney disease
CPT/HCPCS: 36415; 80053; 82043; 82570; 83036

== ENCOUNTER → 2024-01-20 14:56 | Outpatient (CLI) | payer OTHER, MEDICARE, SELFPAY ==
[2024-01-20 15:25] LABS: Add Manual Diff / Slide Review NO; Basophils Absolute Auto 100 /uL (0-100); Basophils Percent Auto 1.1 % (0-2); Eosinophils Absolute Auto 200 /uL (0-450); Eosinophils Percent Auto 3.9 % (2-4); Hematocrit 36.4 % (41-53); Hemoglobin 12.4 g/dL (13.5-17.5); Lymphocytes Absolute Auto 900 /uL (1100-4500); Lymphocytes Percent Auto 14.7 % (25-40); Mean Corpuscular HGB Conc 34.2 % (30-36); Mean Corpuscular Hemoglobin 30.1 PG (26-34); Mean Corpuscular Volume 88.1 fL (80-100); Monocytes Absolute Auto 400 /uL (0-900); Monocytes Percent Auto 7.1 % (3-14); Neutrophils Absolute Auto 4400 /uL (1500-7000); Neutrophils Percent Auto 73.2 % (50-75); Platelet Count 149 X10^3/uL (150-400); Red Blood Cell Count 4.13 X10^6/uL (4.5-5.9); Red Cell Distribution Width 13.1 % (11.6-14.8)
[2024-01-20 15:26] LABS: Reticulocyte Count, Percent 1.2 % (0.9-2.6)
[2024-01-20 15:47] LABS: HEMOLYSIS < 15 (0-50); Iron 104 ug/dL (49-181)
[2024-01-20 15:49] LABS: Alanine Aminotransferase 28 IU/L (<50); Albumin 4.1 g/dL (3.5-5.0); Albumin Globulin Ratio 1.4 (1.0-2.8); Alkaline Phosphatase 74 U/L (38-126); Aspartate Aminotransferase 30 IU/L (17-59); BUN Creatinine Ratio 22.8 (6-22); Bilirubin Total 0.6 mg/dL (0.2-1.3); Blood Urea Nitrogen 70 mg/dL (9-20); Calcium 9.1 mg/dL (8.4-10.2); Carbon Dioxide 22 mmol/L (22-32); Chloride 103 mmol/L (98-107); Estimated Glomerular Filt Rate 21 mL/min (>60); Glucose 117 mg/dL (80-110); HEMOLYSIS < 15 (0-50); Potassium 4.9 mmol/L (3.4-5.1); Sodium 135 mmol/L (137-145); Total Protein 7.1 g/dL (6.3-8.2)
[2024-01-20 15:58] LABS: Percent Iron Saturation 36 % (20-50); Total Iron Binding Capacity 290 ug/dL (261-462); Transferrin 255 mg/dL (206-381)
[2024-01-20 16:38] LABS: Vitamin B12 482 pg/mL (239-931)
== END ==
PROVIDERS: Family Provider Family Medicine; PCP Family Medicine; Referring Provider Family Medicine; Visit Provider Family Medicine
DX: D61.818 Other pancytopenia (principal); D64.9 Anemia, unspecified; E87.5 Hyperkalemia; E11.40 Type 2 diabetes mellitus with diabetic neuropathy, unspecified; N18.31 Chronic kidney disease, stage 3a; I12.9 Hypertensive chronic kidney disease with stage 1 through stage 4 chronic kidney disease, or unspecified chronic kidney disease
CPT/HCPCS: 36415; 80053; 82607; 83540; 83550; 85025; 85045

== ENCOUNTER → 2024-02-02 09:47 | Outpatient (CLI) | payer OTHER, MEDICARE, SELFPAY ==
[2024-02-02 10:38] LABS: Add Manual Diff / Slide Review NO; Basophils Absolute Auto 0 /uL (0-100); Basophils Percent Auto 0.9 % (0-2); Eosinophils Absolute Auto 200 /uL (0-450); Eosinophils Percent Auto 4.7 % (2-4); Hematocrit 34.1 % (41-53); Hemoglobin 11.8 g/dL (13.5-17.5); Lymphocytes Absolute Auto 600 /uL (1100-4500); Lymphocytes Percent Auto 12.6 % (25-40); Mean Corpuscular HGB Conc 34.7 % (30-36); Mean Corpuscular Hemoglobin 30.7 PG (26-34); Mean Corpuscular Volume 88.7 fL (80-100); Monocytes Absolute Auto 500 /uL (0-900); Monocytes Percent Auto 9.4 % (3-14); Neutrophils Absolute Auto 3700 /uL (1500-7000); Neutrophils Percent Auto 72.4 % (50-75); Platelet Count 125 X10^3/uL (150-400); Red Blood Cell Count 3.85 X10^6/uL (4.5-5.9); Red Cell Distribution Width 13.1 % (11.6-14.8); White Blood Cell Count 5.2 X10^3/uL (4.5-11.0)
[2024-02-02 10:41] LABS: Hemoglobin A1C% w Est Avg Glu 5.3 % (4.0-6.0)
[2024-02-02 10:53] LABS: Alanine Aminotransferase 25 IU/L (<50); Albumin Globulin Ratio 1.3 (1.0-2.8); Alkaline Phosphatase 76 U/L (38-126); Aspartate Aminotransferase 29 IU/L (17-59); BUN Creatinine Ratio 18.5 (6-22); Bilirubin Total 0.6 mg/dL (0.2-1.3); Blood Urea Nitrogen 54 mg/dL (9-20); Carbon Dioxide 21 mmol/L (22-32); Chloride 107 mmol/L (98-107); Estimated Glomerular Filt Rate 22 mL/min (>60); Globulin 3.1 g/dL (1.7-4.1); Glucose 94 mg/dL (80-110); HEMOLYSIS < 15 (0-50); Potassium 5.1 mmol/L (3.4-5.1); Sodium 136 mmol/L (137-145); Total Protein 7.1 g/dL (6.3-8.2)
[2024-02-02 11:31] LABS: Creatinine Urine Random 90.65 mg/dL
== END ==
PROVIDERS: Family Provider Family Medicine; PCP Family Medicine; Referring Provider Family Medicine; Visit Provider Family Medicine
DX: E11.9 Type 2 diabetes mellitus without complications (principal); I12.9 Hypertensive chronic kidney disease with stage 1 through stage 4 chronic kidney disease, or unspecified chronic kidney disease; N18.9 Chronic kidney disease, unspecified
CPT/HCPCS: 36415; 80053; 82043; 82570; 83036; 85025

== ENCOUNTER 2024-02-14 05:44 | Emergency (ER) | payer OTHER, MEDICARE, SELFPAY ==
[2024-02-14] VITALS (52 sets, daily range): BP systolic 90–182; BP diastolic 52–106; PULSE 77–97; RESP 13–40; TEMP 36.3–36.9; O2SAT 90–100; BMI 33.4
--- NOTE | 2024-02-14 05:47 | DI.RAD.S_ITS ---
PROCEDURE: XR CHEST 1V INDICATIONS: chest pain TECHNIQUE: One view of the chest was acquired. COMPARISON: [facility], CR, XR CHEST 1V, 12/13/2023, 11:52. FINDINGS: Surgical changes and devices: None. Lungs and pleura: Moderate diffuse interstitial prominence. Mild loss of vascular distinctness with suggestion of upper lung zone predominant vascular congestion. No dense consolidation. No substantial pleural effusion. No pneumothorax. Mediastinum: Mediastinal contours appear normal. Heart size is normal. Bones and chest wall: No suspicious bony lesions. Overlying soft tissues appear unremarkable. IMPRESSION: Moderate upper lobe predominant interstitial prominence with findings suggestive of pulmonary edema or CHF. An infectious or inflammatory process may have a similar appearance if clinically appropriate. No dense consolidation seen. Dictated by: Dylon Sommers M.D. on 02/14/2024 at 7:46 Approved by: Dylon Sommers M.D. on 02/14/2024 at 7:48
--- NOTE | 2024-02-14 05:51 | EKG_ITS ---
[id number] [address] Test Date: 2024-02-14 Pat Name: Yannick Tran Department: Room: Gender: Male Surgical Services Tech: MIKE LAISHA : 1950 Requested By: Order Number: [id number] Reading MD: Taye Dunne MD Measurements Intervals [place] Rate: 81 P: [place]: 176 QRS: -44 QRSD: 118 T: 34 QT: 376 QTc: 436 Interpretive Statements Normal sinus rhythm Left axis deviation Nonspecific intraventricular conduction delay ST depression, consider subendocardial injury Electronically Signed On 02-14-2024 16:17:17 PST by Taye Dunne MD
--- NOTE | 2024-02-14 06:00 | ED.CHESTPAIN ---
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 No radiation to the arms or shoulder blade or legs. No injury or trauma new activities. Pain is somewhat sharp, not particularly worse with inspiration or truncal movements or isolated arm movements. Recent cough fevers or chills. No history of blood clots to legs or lungs, no leg pain or swelling symptoms, no arm pain or swelling symptoms. Related Data Previous Rx's Medication Instructions Recorded Disabled Parking Permit ea ##1 07/31/16 tamsulosin 0.4 mg capsule (Flomax) 0.4 mg PO BID #180 caps 06/18/23 furosemide 20 mg tablet (Lasix) 20 mg PO DAILY #90 tabs 01/22/24 lisinopril 20 mg tablet 20 mg PO DAILY #90 tabs 01/22/24 nifedipine 30 mg tablet,extended 30 mg PO BID #60 tabs 01/22/24 release oxycodone 5 mg tablet 5 mg PO BID PRN pain #60 tabs 01/29/24 Allergies Allergy/AdvReac Type Severity Reaction Status Date / Time Sulfa (Sulfonamide Allergy Severe convulsions Verified 02/02/24 15:11 Antibiotics) [SULFA (SULFONAMIDE ANTIBIOTICS)] penicillin G [PENICILLIN G] Allergy Mild HIVES Verified 02/02/24 15:11 phenazopyridine Allergy Mild RASH Verified 02/02/24 15:11 [PHENAZOPYRIDINE] pseudoephedrine AdvReac Severe urinary Verified 02/02/24 15:11 [PSEUDOEPHEDRINE] retention erythromycin base AdvReac Mild VOMITING Verified 02/02/24 15:11 [ERYTHROMYCIN BASE] Review of Systems <Luis Vasques MD - Last Filed: 02/14/24 11:01> Review of Systems Narrative: See HPI Patient History <Luis Vasques MD - Last Filed: 02/14/24 11:01> Medical History Type 2 diabetes mellitus Dupuytren contracture of right hand Sleep apnea Adhesive capsulitis Left shoulder strain Chronic kidney disease Plaque psoriasis Well adult exam BPH (benign prostatic hyperplasia) Other chronic pain (09/20/16) Thrombocytopenia (12/20/13) Uncontrolled type 2 diabetes mellitus (12/20/13) Chronic interstitial cystitis with hematuria Essential hypertension Class 1 obesity Sarcoidosis Family History Brother CAD (coronary artery disease) H/O heart bypass surgery Social History Smoking Status: Never smoker Smoking Status: Never smoker alcohol intake frequency: 0-2 drinks per day Exam <Luis Vasques MD - Last Filed: 02/14/24 11:01> Narrative Exam Narrative: GENERAL: Well-developed patient, in mild distress. HEAD: Atraumatic. Normocephalic. EYES: Pupils equal round and reactive. Extraocular motions intact. No scleral icterus. No injection or drainage. ENT: Nose without bleeding, purulent drainage. Throat without erythema, tonsillar hypertrophy or exudate. Airway patent. NECK: Trachea midline. Non tender CARDIOVASCULAR: Regular rate and rhythm without murmurs, gallops, or rubs. RESPIRATORY: Clear to auscultation. Breath sounds equal bilaterally. No wheezes, rales, or rhonchi. GASTROINTESTINAL: Abdomen soft, non-tender, nondistended. EXTREMITIES: Edema 1+ to ankles bilateral BACK: Nontender without deformity or crepitance. No flank tenderness. NEURO: AOx3. Motor functions grossly nonfocal SKIN: No rash or erythema of visible areas Initial Vital Signs Initial Vital Signs: Vital Signs Pulse Rate 77 02/14/24 05:55 Respiratory Rate 35 H 02/14/24 05:55 Pulse Oximetry 94 02/14/24 05:55 <Shanon Grady DO - Last Filed: 02/14/24 18:12> Initial Vital Signs Initial Vital Signs: Vital Signs Pulse Rate 77 02/14/24 05:55 Respiratory Rate 35 H 02/14/24 05:55 Pulse Oximetry 94 02/14/24 05:55 Course <Luis Vasques MD - Last Filed: 02/14/24 11:01> Orders Ordered: Discontinued Medications Aspirin (Aspirin 81 Mg Chew Tab) 324 mg PO NOW ONE Stop: 02/14/24 05:48 Last Admin: 02/14/24 06:10 Dose: 324 mg Documented By: PADMA Atorvastatin Calcium (Atorvastatin 20 Mg Tablet) 80 mg PO BEDTIME ONE Stop: 02/14/24 10:40 Last Admin: 02/14/24 10:57 Dose: 80 mg Documented By: PEARL Fentanyl (Fentanyl 100 Mcg/2 Ml Inj) 25 mcg IV NOW ONE Stop: 02/14/24 07:27 Last Admin: 02/14/24 07:45 Dose: 25 mcg Documented By: PEARL Heparin Sodium (Porcine) (Heparin 5,000 Unit/Ml Vial) 5,000 unit IV NOW ONE Stop: 02/14/24 06:35 Last Admin: 02/14/24 06:42 Dose: 5,000 unit Documented By: PADMA Sodium Chloride (Normal Saline 0.9%) 1,000 mls @ 1,000 mls/hr IV BOLUS ONE Stop: 02/14/24 07:00 Last Infusion: 02/14/24 09:26 Dose: Infused Documented By: Admin: 02/14/24 06:07 Dose: 1,000 mls/hr Documented By: PADMA Heparin Sodium/Dextrose (Heparin Drip) 25,000 unit in 500 mls @ 19.958 mls/hr IV CONT FREDRICK; Protocol Last Titration: 02/14/24 12:45 Dose: 0 units/kg/hr, 0 mls/hr Documented By: PEARL Co-signed By: ZAHIDA Admin: 02/14/24 06:50 Dose: 10 units/kg/hr, 19.958 mls/hr Documented By: PADMA Co-signed By: Furosemide 80 mg/ Sodium (Chloride) 58 mls @ 116 mls/hr IV NOW ONE Stop: 02/14/24 09:45 Last Infusion: 02/14/24 11:29 Dose: Infused Documented By: Admin: 02/14/24 10:25 Dose: 116 mls/hr Documented By: PEARL Morphine Sulfate (Morphine 4 Mg/Ml Inj) 2 mg IV NOW ONE Stop: 02/14/24 06:23 Last Admin: 02/14/24 06:42 Dose: 2 mg Documented By: PADMA Nitroglycerin (Nitroglycerin 0.4 Mg Sl Tab) 0.4 mg SL NOW ONE Stop: 02/14/24 08:07 Last Admin: 02/14/24 08:18 Dose: 0.4 mg Documented By: PEARL Pantoprazole Sodium (Pantoprazole 40 Mg Vial) 40 mg IV NOW ONE Stop: 02/14/24 08:07 Last Admin: 02/14/24 08:10 Dose: 40 mg Documented By: PEARL Vital Signs Vital signs: Vital Signs - 8 hr 02/14/24 10:15 02/14/24 10:15 02/14/24 10:21 Temperature Pulse Rate 96 H 95 H Respiratory Rate 13 25 H Blood Pressure 145/78 H Pulse Oximetry 98 99 02/14/24 10:21 02/14/24 10:25 02/14/24 10:25 Temperature Pulse Rate 97 H Respiratory Rate 23 Blood Pressure 118/69 147/71 H Pulse Oximetry 98 02/14/24 10:30 02/14/24 10:31 02/14/24 10:31 Temperature Pulse Rate 94 H 93 H Respiratory Rate 23 21 Blood Pressure 182/103 H Pulse Oximetry 99 99 02/14/24 10:35 02/14/24 10:35 02/14/24 10:40 Temperature Pulse Rate 94 H Respiratory Rate 20 Blood Pressure 139/70 136/65 Pulse Oximetry 99 02/14/24 10:40 02/14/24 10:45 02/14/24 10:45 Temperature Pulse Rate 92 H 91 H Respiratory Rate 17 22 Blood Pressure 136/78 Pulse Oximetry 99 99 02/14/24 10:50 02/14/24 10:50 02/14/24 10:55 Temperature Pulse Rate 90 90 Respiratory Rate 21 22 Blood Pressure 134/81 Pulse Oximetry 96 99 02/14/24 10:55 02/14/24 11:00 02/14/24 11:00 Temperature Pulse Rate 90 Respiratory Rate Blood Pressure 137/75 146/85 H Pulse Oximetry 99 02/14/24 11:05 02/14/24 11:05 02/14/24 11:11 Temperature Pulse Rate 90 91 H Respiratory Rate 19 23 Blood Pressure 141/78 H Pulse Oximetry 99 99 02/14/24 11:11 02/14/24 11:15 02/14/24 11:15 Temperature Pulse Rate 91 H Respiratory Rate 24 Blood Pressure 175/106 H 169/91 H Pulse Oximetry 99 02/14/24 11:20 02/14/24 11:20 02/14/24 11:25 Temperature Pulse Rate 91 H 93 H Respiratory Rate 29 H Blood Pressure 139/67 Pulse Oximetry 99 98 02/14/24 11:25 02/14/24 11:30 02/14/24 11:30 Temperature Pulse Rate 90 Respiratory Rate 24 Blood Pressure 147/101 H 144/81 H Pulse Oximetry 99 02/14/24 11:35 02/14/24 11:35 02/14/24 11:40 Temperature Pulse Rate 89 89 Respiratory Rate 19 16 Blood Pressure 139/70 Pulse Oximetry 99 99 02/14/24 11:40 02/14/24 11:45 02/14/24 11:45 Temperature Pulse Rate 88 Respiratory Rate 21 Blood Pressure 141/80 H 136/66 Pulse Oximetry 100 02/14/24 11:50 02/14/24 11:50 02/14/24 11:55 Temperature Pulse Rate 89 87 Respiratory Rate 19 19 Blood Pressure 145/70 H Pulse Oximetry 100 100 02/14/24 11:55 02/14/24 12:00 02/14/24 12:00 Temperature Pulse Rate 89 Respiratory Rate 17 Blood Pressure 143/74 H 143/79 H Pulse Oximetry 100 02/14/24 12:05 02/14/24 12:05 02/14/24 12:10 Temperature Pulse Rate 90 Respiratory Rate 17 Blood Pressure 146/76 H 141/72 H Pulse Oximetry 100 02/14/24 12:10 02/14/24 12:15 02/14/24 12:15 Temperature Pulse Rate 90 89 Respiratory Rate 15 17 Blood Pressure 144/76 H Pulse Oximetry 100 100 02/14/24 12:21 02/14/24 12:21 02/14/24 12:33 Temperature 98.5 F Pulse Rate 89 Respiratory Rate 22 Blood Pressure 140/87 Pulse Oximetry 100 <Shanon Grady, - Last Filed: 02/14/24 18:12> Orders Ordered: Discontinued Medications Aspirin (Aspirin 81 Mg Chew Tab) 324 mg PO NOW ONE Stop: 02/14/24 05:48 Last Admin: 02/14/24 06:10 Dose: 324 mg Documented By: PADMA Atorvastatin Calcium (Atorvastatin 20 Mg Tablet) 80 mg PO BEDTIME ONE Stop: 02/14/24 10:40 Last Admin: 02/14/24 10:57 Dose: 80 mg Documented By: PEARL Fentanyl (Fentanyl 100 Mcg/2 Ml Inj) 25 mcg IV NOW ONE Stop: 02/14/24 07:27 Last Admin: 02/14/24 07:45 Dose: 25 mcg Documented By: PEARL Heparin Sodium (Porcine) (Heparin 5,000 Unit/Ml Vial) 5,000 unit IV NOW ONE Stop: 02/14/24 06:35 Last Admin: 02/14/24 06:42 Dose: 5,000 unit Documented By: PADMA Sodium Chloride (Normal Saline 0.9%) 1,000 mls @ 1,000 mls/hr IV BOLUS ONE Stop: 02/14/24 07:00 Last Infusion: 02/14/24 09:26 Dose: Infused Documented By: Admin: 02/14/24 06:07 Dose: 1,000 mls/hr Documented By: PADMA Heparin Sodium/Dextrose (Heparin Drip) 25,000 unit in 500 mls @ 19.958 mls/hr IV CONT FREDRICK; Protocol Last Titration: 02/14/24 12:45 Dose: 0 units/kg/hr, 0 mls/hr Documented By: PEARL Co-signed By: ZAHIDA Admin: 02/14/24 06:50 Dose: 10 units/kg/hr, 19.958 mls/hr Documented By: PADMA Co-signed By: Furosemide 80 mg/ Sodium (Chloride) 58 mls @ 116 mls/hr IV NOW ONE Stop: 02/14/24 09:45 Last Infusion: 02/14/24 11:29 Dose: Infused Documented By: Admin: 02/14/24 10:25 Dose: 116 mls/hr Documented By: PEARL Morphine Sulfate (Morphine 4 Mg/Ml Inj) 2 mg IV NOW ONE Stop: 02/14/24 06:23 Last Admin: 02/14/24 06:42 Dose: 2 mg Documented By: PADMA Nitroglycerin (Nitroglycerin 0.4 Mg Sl Tab) 0.4 mg SL NOW ONE Stop: 02/14/24 08:07 Last Admin: 02/14/24 08:18 Dose: 0.4 mg Documented By: PEARL Pantoprazole Sodium (Pantoprazole 40 Mg Vial) 40 mg IV NOW ONE Stop: 02/14/24 08:07 Last Admin: 02/14/24 08:10 Dose: 40 mg Documented By: PEARL Vital Signs Vital signs: Vital Signs - 8 hr 02/14/24 10:15 02/14/24 10:15 02/14/24 10:21 Temperature Pulse Rate 96 H 95 H Respiratory Rate 13 25 H Blood Pressure 145/78 H Pulse Oximetry 98 99 02/14/24 10:21 02/14/24 10:25 02/14/24 10:25 Temperature Pulse Rate 97 H Respiratory Rate 23 Blood Pressure 118/69 147/71 H Pulse Oximetry 98 02/14/24 10:30 02/14/24 10:31 02/14/24 10:31 Temperature Pulse Rate 94 H 93 H Respiratory Rate 23 21 Blood Pressure 182/103 H Pulse Oximetry 99 99 02/14/24 10:35 02/14/24 10:35 02/14/24 10:40 Temperature Pulse Rate 94 H Respiratory Rate 20 Blood Pressure 139/70 136/65 Pulse Oximetry 99 02/14/24 10:40 02/14/24 10:45 02/14/24 10:45 Temperature Pulse Rate 92 H 91 H Respiratory Rate 17 22 Blood Pressure 136/78 Pulse Oximetry 99 99 02/14/24 10:50 02/14/24 10:50 02/14/24 10:55 Temperature Pulse Rate 90 90 Respiratory Rate 21 22 Blood Pressure 134/81 Pulse Oximetry 96 99 02/14/24 10:55 02/14/24 11:00 02/14/24 11:00 Temperature Pulse Rate 90 Respiratory Rate Blood Pressure 137/75 146/85 H Pulse Oximetry 99 02/14/24 11:05 02/14/24 11:05 02/14/24 11:11 Temperature Pulse Rate 90 91 H Respiratory Rate 19 23 Blood Pressure 141/78 H Pulse Oximetry 99 99 02/14/24 11:11 02/14/24 11:15 02/14/24 11:15 Temperature Pulse Rate 91 H Respiratory Rate 24 Blood Pressure 175/106 H 169/91 H Pulse Oximetry 99 02/14/24 11:20 02/14/24 11:20 02/14/24 11:25 Temperature Pulse Rate 91 H 93 H Respiratory Rate 29 H Blood Pressure 139/67 Pulse Oximetry 99 98 02/14/24 11:25 02/14/24 11:30 02/14/24 11:30 Temperature Pulse Rate 90 Respiratory Rate 24 Blood Pressure 147/101 H 144/81 H Pulse Oximetry 99 02/14/24 11:35 02/14/24 11:35 02/14/24 11:40 Temperature Pulse Rate 89 89 Respiratory Rate 19 16 Blood Pressure 139/70 Pulse Oximetry 99 99 02/14/24 11:40 02/14/24 11:45 02/14/24 11:45 Temperature Pulse Rate 88 Respiratory Rate 21 Blood Pressure 141/80 H 136/66 Pulse Oximetry 100 02/14/24 11:50 02/14/24 11:50 02/14/24 11:55 Temperature Pulse Rate 89 87 Respiratory Rate 19 19 Blood Pressure 145/70 H Pulse Oximetry 100 100 02/14/24 11:55 02/14/24 12:00 02/14/24 12:00 Temperature Pulse Rate 89 Respiratory Rate 17 Blood Pressure 143/74 H 143/79 H Pulse Oximetry 100 02/14/24 12:05 02/14/24 12:05 02/14/24 12:10 Temperature Pulse Rate 90 Respiratory Rate 17 Blood Pressure 146/76 H 141/72 H Pulse Oximetry 100 02/14/24 12:10 02/14/24 12:15 02/14/24 12:15 Temperature Pulse Rate 90 89 Respiratory Rate 15 17 Blood Pressure 144/76 H Pulse Oximetry 100 100 02/14/24 12:21 02/14/24 12:21 02/14/24 12:33 Temperature 98.5 F Pulse Rate 89 Respiratory Rate 22 Blood Pressure 140/87 Pulse Oximetry 100 MDM - Chest Pain <Luis Vasques MD - Last Filed: 02/14/24 11:01> Lab Data Attestation: I reviewed the patient's lab results. Lab results narrative: White blood cell count 7400, hemoglobin 11.5, platelets [id number]. BUN 53 with creatinine 3.05 noted. Glucose 171. Sodium 136, potassium 4.7, serum CO2 16. Liver functions unremarkable. Lipase normal. Troponin 0.266 elevated, BNP [id number] 02/14/24 06:00 02/14/24 06:00 Labs: Lab Results 02/14/24 02/14/24 Range/Units 06:00 07:57 WBC 7.4 (4.5-11.0) X10^3/uL RBC 3.73 L (4.5-5.9) X10^6/uL Hgb 11.5 L (13.5-17.5) g/dL Hct 33.3 L (41-53) % MCV 89.2 (80-100) fL MCH 30.8 (26-34) PG MCHC 34.5 (30-36) % RDW 13.3 (11.6-14.8) % Plt Count 179 (150-400) X10^3/uL Neut % (Auto) 73.6 (50-75) % Lymph % (Auto) 13.2 L (25-40) % [place] % (Auto) 7.9 (3-14) % Eos % (Auto) 4.9 H (2-4) % Baso % (Auto) 0.4 (0-2) % Neut # (Auto) 5400 (0334-3765) /uL Lymph # (Auto) 1000 L (9002-4205) /uL [place] # (Auto) 600 (0-900) /uL Eos # (Auto) 400 (0-450) /uL Baso # (Auto) 0 (0-100) /uL PT 12.8 H (9.4-12.5) SECONDS INR 1.1 (0.9-1.3) APTT 33 (25.1-36.5) SECONDS Sodium 136 L (137-145) mmol/L Potassium 4.7 (3.4-5.1) mmol/L Chloride 107 (98-107) mmol/L Carbon Dioxide 16 L (22-32) mmol/L BUN 53 H (9-20) mg/dL Creatinine 3.05 H (0.66-1.25) mg/dL Estimated GFR 21 L (>60) mL/min BUN/Creatinine Ratio 17.4 (6-22) Glucose 171 H (80-110) mg/dL Calcium 8.8 (8.4-10.2) mg/dL Magnesium 1.8 (1.6-2.3) mg/dL Total Bilirubin 0.7 (0.2-1.3) mg/dL AST 31 (17-59) IU/L ALT 25 (<50) IU/L Alkaline Phosphatase 99 (38-126) U/L Total Creatine Kinase 112 (55-170) U/L Troponin I 0.266 H* 3.050 H* (0.01-0.034) ng/mL NT-Pro-B Natriuret Pep 31222 H (<125) pg/mL Total Protein 7.6 (6.3-8.2) g/dL Albumin 4.2 (3.5-5.0) g/dL Globulin 3.4 (1.7-4.1) g/dL Albumin/Globulin Ratio 1.2 (1.0-2.8) Lipase 154 (23-300) U/L ECG Data Attestation: I personally reviewed and interpreted this ECG as follows: Interpretation: 0551, normal sinus rhythm with rate 81, no obvious ST segment elevation however there is ST segment depression in leads V4 through V6. NC 176, QRS 118, QTC 436. 0644, normal sinus rhythm with rate 92, no obvious ST segment elevation, again there is ST segment depression in lateral leads. NC 174, QRS 128, QTC 482. MDM Narrative Medical decision making narrative: 73-year-old male with history of congestive heart failure, followed by Dr. Israel Cardiology, now with 2 hours duration left anterior chest pain radiating to left neck, EKG shows normal sinus rhythm with ST segment depression in leads V4 through V6. Troponin 0.266 elevated Chest x-ray single view. Impressions: ?No acute cardiopulmonary abnormality is identified. ? See tele radiology report. No mention of mediastinal widening Soft blood pressure 90-98 systolic noted, IV fluid bolus requested, to see if patient can tolerate IV 2 mg morphine, we will hold nitroglycerin for now. Give oral aspirin. IV heparin bolus and infusion as per ACS protocol. Oral aspirin ordered. No dental laboratory technology teacher here, we will contact Cardiology, his beverage server Dr. Israel at [facility] or on-call, for transfer to likely dental laboratory technology teacher capable facility 0650, case discussed with Dr. Comer cardiology on-call at [facility], made aware that patient having ongoing chest pain, soft blood pressure, positive troponin, ST segment depressions leads V4 through V6 on 2 EKGs, heparin bolus with infusion. He is calling warehouse distribution specialist there. Anticipate transfer. 0700, IV heparin bolus/infusion, anticipate transfer to dental laboratory technology teacher capable facility, signed out to Dr. Grady 02/14/2024: Patient signed out to myself by Dr. Vasques. patient seen and evaluated by myself. Developed chest pain last night about 12 hours ago has been persistent throughout the night describes it as substernal without radiation was reported as quite diaphoretic on arrival here that has not improved. Still has active chest pain but was hypotensive initially so was not able to receive any nitrates has aspirin and heparin drip running currently. Patient has new ST depression noted on EKGs. Patient does have a history of CKD, hypertension, diabetes although describes well-controlled CHF or fluid overload. Patient's medications has been adjusted fairly recently but he has also had some fluid overload. Labs show creatinine slightly elevated but close to baseline according to prior labs here with a creatinine of 3 troponin is positive, patient has new ST changes, he was anemic but baseline with a hemoglobin of 11. No significant electrolyte abnormalities, CO2 is noted to be low. Chest x-ray shows no acute change on prelim read appears fluid overloaded to me. Patient does have an echo from 12/25/2023 which shows an EF of 55% and can not rule out hypokinesis along the mid to distal anteroseptal including apical septum. Patient is a full code. Dr. Vasques had spoken with Dr. Comer, cardiology at [facility] they asked to call back at 30 minutes if unable to talk with the other facility. I spoke with @ 0740 Dr. Dickens who called back he was reviewing EKGs reviewed patient's findings he asked that we informed patient they will end up on dialysis if catheterization with a creatinine of 3 he will call back. [facility] does not currently have beds but they are reviewing for potential emergent transfer. Called her out to multiple other facilities at this time spoke with coordinator at . EKGS and ECHO report were faxed @ [phone] Recheck after fentanyl, patient had minimal improvement. Pressures continued to be in the 120s so we will try a dose of nitro sublingual. Spoke with Dr. Dickens 0823: Willing to accept but no capacity at this time working with coordinator to see if they can just that is for patient. He has seen patient's EKGs. 0825: Spoke with [place] physician they will also look to see about beds. Discussed we have calls out to multiple hospitals. Spoke with Dr. Dickens, 0840 beverage server [facility] unable to get capacity they even open up [facility]. unable to take patient. Spoke with Dr. Carrasquillo [phone], G, open developer operator at [facility]. Accepted but they do not have any bed availability. They asked for us to continue to look for beds elsewhere but they will call when a bed is available. No additional recommendations at this time patient did have fentanyl which has not have any improvement, had nitro sublingual which dropped his pressure to 100 systolic so we will not continue with nitrates. Did discuss that troponin trended upwards to 3.05 from 0.266 0913: Spoke with cardiology Dr. Stanford at [facility], they accept but would ask that we speak with the hospitalist. There is a bed available at [facility]. Discussed active chest pain with rising troponin, CKD with creatinine of 3 was not able to continue with nitrates secondary to hypotension, fentanyl was not helpful for patient's symptoms. Hospitalist at [facility], Dr. Sin @ [phone]: Accepts for transfer reviewed patient's findings he does ask if we give a dose of Lasix 80 mg pressures improved. Reviewed Cardiology expect to take to dental laboratory technology teacher at this time. Still is chest pain present. Reviewed patient's vitals, labs EKG changes and current medical history. We will await call back from hospital coordinator. Core Measures AMI core measures followed: Yes <Shanon Grady DO - Last Filed: 02/14/24 18:12> Lab Data Labs: Lab Results 02/14/24 02/14/24 Range/Units 06:00 07:57 WBC 7.4 (4.5-11.0) X10^3/uL RBC 3.73 L (4.5-5.9) X10^6/uL Hgb 11.5 L (13.5-17.5) g/dL Hct 33.3 L (41-53) % MCV 89.2 (80-100) fL MCH 30.8 (26-34) PG MCHC 34.5 (30-36) % RDW 13.3 (11.6-14.8) % Plt Count 179 (150-400) X10^3/uL Neut % (Auto) 73.6 (50-75) % Lymph % (Auto) 13.2 L (25-40) % [place] % (Auto) 7.9 (3-14) % Eos % (Auto) 4.9 H (2-4) % Baso % (Auto) 0.4 (0-2) % Neut # (Auto) 5400 (1286-0742) /uL Lymph # (Auto) 1000 L (2238-6452) /uL [place] # (Auto) 600 (0-900) /uL Eos # (Auto) 400 (0-450) /uL Baso # (Auto) 0 (0-100) /uL PT 12.8 H (9.4-12.5) SECONDS INR 1.1 (0.9-1.3) APTT 33 (25.1-36.5) SECONDS Sodium 136 L (137-145) mmol/L Potassium 4.7 (3.4-5.1) mmol/L Chloride 107 (98-107) mmol/L Carbon Dioxide 16 L (22-32) mmol/L BUN 53 H (9-20) mg/dL Creatinine 3.05 H (0.66-1.25) mg/dL Estimated GFR 21 L (>60) mL/min BUN/Creatinine Ratio 17.4 (6-22) Glucose 171 H (80-110) mg/dL Calcium 8.8 (8.4-10.2) mg/dL Magnesium 1.8 (1.6-2.3) mg/dL Total Bilirubin 0.7 (0.2-1.3) mg/dL AST 31 (17-59) IU/L ALT 25 (<50) IU/L Alkaline Phosphatase 99 (38-126) U/L Total Creatine Kinase 112 (55-170) U/L Troponin I 0.266 H* 3.050 H* (0.01-0.034) ng/mL NT-Pro-B Natriuret Pep 26379 H (<125) pg/mL Total Protein 7.6 (6.3-8.2) g/dL Albumin 4.2 (3.5-5.0) g/dL Globulin 3.4 (1.7-4.1) g/dL Albumin/Globulin Ratio 1.2 (1.0-2.8) Lipase 154 (23-300) U/L [facility] Narrative Medical decision making narrative: 73-year-old male with history of congestive heart failure, followed by Dr. Israel Cardiology, now with 2 hours duration left anterior chest pain radiating to left neck, EKG shows normal sinus rhythm with ST segment depression in leads V4 through V6. Troponin 0.266 elevated Chest x-ray single view. Impressions: ?No acute cardiopulmonary abnormality is identified. ? See tele radiology report. No mention of mediastinal widening Soft blood pressure 90-98 systolic noted, IV fluid bolus requested, to see if patient can tolerate IV 2 mg morphine, we will hold nitroglycerin for now. Give oral aspirin. IV heparin bolus and infusion as per ACS protocol. Oral aspirin ordered. No dental laboratory technology teacher here, we will contact Cardiology, his beverage server Dr. Israel at [facility] or on-call, for transfer to likely dental laboratory technology teacher capable facility 0650, case discussed with Dr. Comer cardiology on-call at [facility], made aware that patient having ongoing chest pain, soft blood pressure, positive troponin, ST segment depressions leads V4 through V6 on 2 EKGs, heparin bolus with infusion. He is calling warehouse distribution specialist there. Anticipate transfer. 0700, IV heparin bolus/infusion, anticipate transfer to dental laboratory technology teacher capable facility, signed out to Dr. Grady 02/14/2024: Patient signed out to myself by Dr. Vasques. patient seen and evaluated by myself. Developed chest pain last night about 12 hours ago has been persistent throughout the night describes it as substernal without radiation was reported as quite diaphoretic on arrival here that has not improved. Still has active chest pain but was hypotensive initially so was not able to receive any nitrates has aspirin and heparin drip running currently. Patient has new ST depression noted on EKGs. Patient does have a history of CKD, hypertension, diabetes although describes well-controlled CHF or fluid overload. Patient's medications has been adjusted fairly recently but he has also had some fluid overload. Labs show creatinine slightly elevated but close to baseline according to prior labs here with a creatinine of 3 troponin is positive, patient has new ST changes, he was anemic but baseline with a hemoglobin of 11. No significant electrolyte abnormalities, CO2 is noted to be low. Chest x-ray shows no acute change on prelim read appears fluid overloaded to me. Patient does have an echo from 12/25/2023 which shows an EF of 55% and can not rule out hypokinesis along the mid to distal anteroseptal including apical septum. Patient is a full code. Dr. Vasques had spoken with Dr. Comer, cardiology at [facility] they asked to call back at 30 minutes if unable to talk with the other facility. I spoke with @ 0740 Dr. Dickens who called back he was reviewing EKGs reviewed patient's findings he asked that we informed patient they will end up on dialysis if catheterization with a creatinine of 3 he will call back. [facility] does not currently have beds but they are reviewing for potential emergent transfer. Called her out to multiple other facilities at this time spoke with coordinator at . EKGS and ECHO report were faxed @ [phone] Recheck after fentanyl, patient had minimal improvement. Pressures continued to be in the 120s so we will try a dose of nitro sublingual. Spoke with Dr. Dickens 0823: Willing to accept but no capacity at this time working with coordinator to see if they can just that is for patient. He has seen patient's EKGs. 0825: Spoke with [place] physician they will also look to see about beds. Discussed we have calls out to multiple hospitals. Spoke with Dr. Dickens, 0840 beverage server [facility] unable to get capacity they even open up L and D. unable to take patient. Spoke with Dr. Meet Carrasquillo [phone], open developer operator at [facility]. Accepted but they do not have any bed availability. They asked for us to continue to look for beds elsewhere but they will call when a bed is available. No additional recommendations at this time patient did have fentanyl which has not have any improvement, had nitro sublingual which dropped his pressure to 100 systolic so we will not continue with nitrates. Did discuss that troponin trended upwards to 3.05 from 0.266 0913: Spoke with cardiology Dr. Stanford at [facility], they accept but would ask that we speak with the hospitalist. There is a bed available at [facility]. Discussed active chest pain with rising troponin, CKD with creatinine of 3 was not able to continue with nitrates secondary to hypotension, fentanyl was not helpful for patient's symptoms. Hospitalist at [facility], Dr. Sin @ 0946: Accepts for transfer reviewed patient's findings he does ask if we give a dose of Lasix 80 mg pressures improved. Reviewed Cardiology expect to take to dental laboratory technology teacher at this time. Still is chest pain present. Reviewed patient's vitals, labs EKG changes and current medical history. We will await call back from hospital coordinator. [facility] recontacted, they had a STEMI and no longer have capacity for patient he is no longer accepted. Call out to [facility] for assistance with bedplacement. There is still a call out to Mia manjarrez. 1108: Patient blood pressures continued to be little bit improved we will give an additional dose of nitro sublingual on rechecked an update with patient chest pain is present but improved after earlier treatments. Did go of 80 mg atorvastatin. We will continue to monitor patient's blood pressure and may give beta-temo as well. Updated patient and family. They are aware still searching for bed. 1130: recontacted, has bed available. Can set up transport. Sent ALS. Critical Care Time <Luis Vasques MD - Last Filed: 02/14/24 11:01> Critical Care Time Total Critical Care Time: 35 Attestation: The high probability of a clinically significant, sudden or life threatening deterioration of the cardiac and pulmonary system(s) required my full and direct attention, intervention and personal management. The aggregate critical care time was [--35] minutes. This time is in addition to time spent performing reported procedures but includes the following: [x] Data Review and interpretation [x] Patient assessment and monitoring of vital signs [x] Documentation [x] Medication orders and management <Shanon Grady DO - Last Filed: 02/14/24 18:12> Critical Care Time Critical Care Time: Yes Total Critical Care Time: 50 Attestation: The high probability of a clinically significant, sudden or life threatening deterioration of the cardiac and pulmonary system(s) required my full and direct attention, intervention and personal management. The aggregate critical care time was [--] minutes. This time is in addition to time spent performing reported procedures but includes the following: [x] Data Review and interpretation [x] Patient assessment and monitoring of vital signs [x] Documentation [x] Medication orders and management Discharge Plan Departure Patient Disposition: [facility] Clinical Impression: Chest pain, Non-ST elevated myocardial infarction Prescriptions: No Action Disabled Parking Permit Qty: 1 0RF oxycodone 5 mg tablet 5 mg PO BID PRN (Reason: pain) Qty: 60 0RF furosemide [Lasix] 20 mg tablet 20 mg PO DAILY Qty: 90 1RF Rx Instructions: start taking 1 daily lisinopril 20 mg tablet 20 mg PO DAILY Qty: 90 3RF Rx Instructions: start taking once daily nifedipine 30 mg tablet extended release 30 mg PO BID Qty: 60 1RF Rx Instructions: start taking twice a day tamsulosin [Flomax] 0.4 mg capsule 0.4 mg PO BID Qty: 180 3RF Referrals: Kyle Vasquez, [Primary Care Provider] -
[2024-02-14] MEDS: SODIUM CHLORIDE 0.9% 1,000 ML 1000 ML IV (06:07)
[2024-02-14 06:08] LABS: Add Manual Diff / Slide Review NO; Basophils Absolute Auto 0 /uL (0-100); Basophils Percent Auto 0.4 % (0-2); Eosinophils Absolute Auto 400 /uL (0-450); Eosinophils Percent Auto 4.9 % (2-4); Hematocrit 33.3 % (41-53); Hemoglobin 11.5 g/dL (13.5-17.5); Lymphocytes Absolute Auto 1000 /uL (1100-4500); Lymphocytes Percent Auto 13.2 % (25-40); Mean Corpuscular HGB Conc 34.5 % (30-36); Mean Corpuscular Hemoglobin 30.8 PG (26-34); Mean Corpuscular Volume 89.2 fL (80-100); Monocytes Absolute Auto 600 /uL (0-900); Monocytes Percent Auto 7.9 % (3-14); Neutrophils Absolute Auto 5400 /uL (1500-7000); Neutrophils Percent Auto 73.6 % (50-75); Platelet Count 179 X10^3/uL (150-400); Red Blood Cell Count 3.73 X10^6/uL (4.5-5.9); Red Cell Distribution Width 13.3 % (11.6-14.8); White Blood Cell Count 7.4 X10^3/uL (4.5-11.0)
[2024-02-14] MEDS: ASPIRIN 81 MG CHEW TAB 324 MG PO (06:10)
[2024-02-14 06:13] LABS: INR 1.1 (0.9-1.3); Prothrombin Time 12.8 SECONDS (9.4-12.5)
--- NOTE | 2024-02-14 06:14 | PC.NURSE ---
DENTAL EQUIPMENT INSTALLER AND SERVICER note: Patient's truck car and bus cleaner: Ignacio Saeed phone number: [phone] Patient's snailer: Mackenzie Israel phone number [phone]
[2024-02-14 06:16] LABS: PTT Partial Thromboplastin Tim 33 SECONDS (25.1-36.5)
[2024-02-14 06:18] LABS: Alanine Aminotransferase 25 IU/L (<50); Albumin 4.2 g/dL (3.5-5.0); Albumin Globulin Ratio 1.2 (1.0-2.8); Alkaline Phosphatase 99 U/L (38-126); Aspartate Aminotransferase 31 IU/L (17-59); BUN Creatinine Ratio 17.4 (6-22); Bilirubin Total 0.7 mg/dL (0.2-1.3); Blood Urea Nitrogen 53 mg/dL (9-20); Calcium 8.8 mg/dL (8.4-10.2); Carbon Dioxide 16 mmol/L (22-32); Chloride 107 mmol/L (98-107); Creatine Kinase 112 U/L (55-170); Estimated Glomerular Filt Rate 21 mL/min (>60); Globulin 3.4 g/dL (1.7-4.1); Glucose 171 mg/dL (80-110); HEMOLYSIS < 15 (0-50); Lipase 154 U/L (23-300); Magnesium 1.8 mg/dL (1.6-2.3); Potassium 4.7 mmol/L (3.4-5.1); Sodium 136 mmol/L (137-145); Total Protein 7.6 g/dL (6.3-8.2)
[2024-02-14 06:30] LABS: NT-proBNP (BNP-Adult 18+) 10700 pg/mL (<125)
[2024-02-14 06:32] LABS: Troponin I 0.266 ng/mL (0.01-0.034)
[2024-02-14] MEDS: MORPHINE 4 MG/ML INJ 2 MG IV (06:42)
[2024-02-14] MEDS: HEPARIN 5,000 UNIT/ML VIAL 5000 UNIT IV (06:42)
--- NOTE | 2024-02-14 06:44 | EKG_ITS ---
[address] [address] Test Date: 2024-02-14 Pat Name: Yannick Tran Department: [facility] Room: Gender: Male Sales Support Specialist: RICHARD : 1950 Requested By: Order Number: [id number] Reading MD: Taye Dunne MD Measurements Intervals [place] Rate: 92 P: 76 [place]: 174 QRS: -50 QRSD: 128 T: 104 QT: 390 QTc: 482 Interpretive Statements Sinus rhythm with fusion complexes Left axis deviation Nonspecific intraventricular block Abnormal QRS-T angle, consider primary T wave abnormality NO SIGNIFICANT CHANGE FROM PRIOR TRACING Electronically Signed On 02-14-2024 16:17:32 PST by Taye Dunne MD
[2024-02-14] MEDS: HEPARIN DRIP 25,000 UNIT/500 ML IV.SOLN 19.958 UNIT IV (06:50)
[2024-02-14] MEDS: fentaNYL 100 MCG/2 ML INJ 25 MCG IV (07:45)
[2024-02-14] MEDS: PANTOPRAZOLE 40 MG VIAL IV (08:10)
[2024-02-14] MEDS: NITROGLYCERIN 0.4 MG SL TAB SL (08:18)
--- NOTE | 2024-02-14 08:36 | PC.NURSE ---
MD Grady aware of Troponin
[2024-02-14] MEDS: FUROSEMIDE 80 MG in SODIUM CHLORIDE 0.9% 50 ML 116 MG IV (10:25)
[2024-02-14] MEDS: ATORVASTATIN 20 MG TABLET 80 MG PO (10:57)
--- NOTE | 2024-02-14 12:33 | PC.NURSE ---
Pt reports continued midline chest pain that he states is unrelieved by medications administered in the ER. Pt states only comfortable and tolerable position is leaning forward feet on the ground. Pt getting continuous 6L O2 by oximask maintaining O2 sat 99%. Pt reports CP is 5-7/10. 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
--- NOTE | 2024-02-14 12:46 | PC.NURSE ---
Addendum entered by Yannick Tinajero 02/14/24 13:13: BRETT Rodríguez says that they will call us back after we get the all clear from [place] for transfer of the patient. [place] called @0840 and given the most up to date info on the case. [place] says they will call back with their provider. [place] calls back @0900 and gives the all clear to transfer after their doc and the ER doc talk. [facility] calls back @0910 saying that they have a bed for the patient; they just need acceptance from their operations chief, or their hospitalist after talking with [facility] Cardiology. [facility] cardiology is contacted @0920 and they Original Note: Transfer Note: [facility], [facility], [facility] Transfer Center, [facility], [facility], and [facility] are all called by the [facility]. stock ranch supervisor will work on finding a bed for the patient, but it is tight per the House Sup. @0733 Immediately told that [facility] has no bed availability by Taz in the transfer center @0705 Told by Delbert in the transfer center for [facility] that there will be at least a 24 hour wait for a bed to open up @0706 Told by Kun at the [facility] Transfer Center that they will consult on the case and look for a bed @0711 No answer at the [facility] Transfer Center @0715 Told by the Botanical Technical Officer Calos at [facility] that they will call us back to talk about the case @0718 Transferring the patient is taken over by myself approximately @0735. Called [facility] for a bed status update @0800 and are told that they are unable to take the patient due to no bed availability. Was told that [facility] even tried to check to see if they could create space with their L&D Department. Called [facility] @0815
--- NOTE | 2024-02-14 16:00 | PC.NURSE ---
Report given to Deepali GREEN at .
== END 2024-02-14 12:45 | disposition short-term general hospital (02) ==
PROVIDERS: Emergency Medicine; Emergency Provider Emergency Medicine; Family Provider Family Medicine; PCP Family Medicine
DX: I21.4 Non-ST elevation (NSTEMI) myocardial infarction (principal); I11.0 Hypertensive heart disease with heart failure; I50.9 Heart failure, unspecified
CPT/HCPCS: 36415; 71045; 80053; 82550; 83690; 83735; 83880; 84484; 85025; 85610; 85730; 93005; 96361; 96365; 96366; 96368; 96375; 99284; 99291; J1644; J1940; J2270; J2470; J3010